=== PATIENT | female | born 1955 | race Caucasian/White ===

== ENCOUNTER 2022-02-17 13:00 | Outpatient (CLI) | payer MEDICARE, SELFPAY ==
--- NOTE | 2022-02-17 13:00 | CRLHL7_ITS ---
For Patients: As a result of the Century Cures Act, medical imaging exams and procedure reports are released immediately into your electronic medical record. You may view this report before your referring provider. If you have questions, please contact your health care provider. BILATERAL SCREENING MAMMOGRAM WITH COMPUTER-AIDED DETECTION AND TOMOSYNTHESIS, 02/17/2022 TECHNIQUE: CC and MLO views were obtained. These mammographic images have been obtained using full-field digital technique. These mammographic images were interpreted with the benefit of computer-aided detection. Breast tomosynthesis was used in this interpretation. COMPARISON FILM: 01/13/2021, 06/09/2019, 01/28/2018. FINDINGS: There are scattered areas of fibroglandular density. IMPRESSION: There is no radiographic evidence for malignancy. ASSESSMENT: BI-RADS Category 2: Benign RECOMMENDATION: Routine screening mammogram in 1 year. A lay language report of this examination will be provided to the patient. DILSHAD MARCIAL M.D. Diagnostic Radiologist [email or web address] Transcribed: 2:[address]/Dictated by: Dilshad Marcial MD @ 02/18/2022 9:13:00 AM (Electronically Signed)
== END 2022-02-17 13:01 | disposition home or self-care (01) ==
LOC: MAMMO 13:03
PROVIDERS: PCP Internal Medicine; Visit Provider Internal Medicine
DX: Z12.31 Encounter for screening mammogram for malignant neoplasm of breast (principal)
CPT/HCPCS: 77063; 77067

== ENCOUNTER 2023-02-23 13:57 | Outpatient (CLI) | payer MEDICARE, BC, SELFPAY ==
--- NOTE | 2023-02-23 14:00 | CRLHL7_ITS ---
For Patients: As a result of the Century Cures Act, medical imaging exams and procedure reports are released immediately into your electronic medical record. You may view this report before your referring provider. If you have questions, please contact your health care provider. BILATERAL SCREENING MAMMOGRAM WITH COMPUTER-AIDED DETECTION AND TOMOSYNTHESIS TECHNIQUE: CC and MLO views were obtained. These mammographic images have been obtained using full-field digital technique. These mammographic images were interpreted with the benefit of computer-aided detection. Breast Tomosynthesis was used in this interpretation. COMPARISON FILM: 02/17/22, 01/13/21, 06/09/19. FINDINGS: The breasts are heterogeneously dense, which may obscure small masses IMPRESSION: There is no radiographic evidence for malignancy. ASSESSMENT: BI-RADS Category 1: Negative RECOMMENDATION: Routine screening mammogram in 1 year. A lay language report of this examination will be provided to the patient. Dilshad Parker M.D. Diagnostic Radiologist [email or web address] SUZI/Dictated by: Dilshad Parker MD @ 02/24/2023 12:21:00 PM (Electronically Signed)
== END 2023-02-23 13:58 | disposition home or self-care (01) ==
LOC: MAMMO 13:58
PROVIDERS: PCP Internal Medicine; Visit Provider Internal Medicine
DX: Z12.31 Encounter for screening mammogram for malignant neoplasm of breast (principal); R92.2 Inconclusive mammogram
CPT/HCPCS: 77063; 77067

== ENCOUNTER 2023-08-24 08:30 | Outpatient (CLI) | payer MEDICARE, BC, SELFPAY ==
--- OUTSIDE RECORDS SUMMARY | 2023-08-25 07:18 | XMS_ITS | Encounter Summary ---
Author Name Unknown Organization [facility] Address [address] [place] [address] Care Team Providers Care Steel Rigger Name Role Phone Elizabeth Romeo MD Primary Care Provider Kyle Garza MD Unavailable Elizabeth Romeo MD Unavailable Janelle Dewitt MD Primary Care Provider [phone] Phuong Baugh MD Unavailable [phone] Chanelle Segura MD Unavailable [phone] Marisol Fernandez PA-C Unavailable [phone] Phuong Baugh MD Unavailable [phone] Encounter Details Date Type Department Care Team (Late st Contact Info) Description 12[place]06/2020 [facility] [place] [facility] [place] [facility] [address] [place] [address] Leslie Atkinson ATC Social History Tobacco Use Types Packs/Day Years Used Date Smoking Tobacco: Never Smokeless Tobacco: Never Alcohol Use Standard Drinks/Week Comments Yes 0 (1 standard drink = 0.6 oz pure alcohol) occas., 2 per month, before dinner PHQ-2 Answer Date Recorded PHQ-2 Score 0 07/18/2018 Sex and Gender Information Value Date Recorded Sex Assigned at Female 01/09/2021 11:55 AM CDT Gender Identity Female 01/09/2021 11:55 AM CDT Sexual Orientation Not on file documented as of this encounter Plan of Treatment Not on file documented as of this encounter Visit Diagnoses Not on filedocumented in this encounter Care Teams Steel Rigger Relationship Specialty Start Date End Date Elizabeth Romeo MD [address] [address] PCP - General 08/10/02 01/13/21 Janelle Dewitt MD [address] [phone] PCP - General Internal Medicine 01/14/21 Kyle Garza MD [address] [phone] Family Medicine - Sports Medicine 12/24/14 Elizabeth Romeo MD [address] [address] Assigned PCP 07/23/19 04/12/21 Phuong Baugh MD [address] [place] [address] [id number] Assigned Musculoskeletal Provider 01/19/21 11/21/21 Chanelle Segura MD [address] [place], [place] [phone] Assigned PCP 04/13/21 07/19/21 Marisol Fernandez PA-C [address] [place] [address] [phone] Assigned Musculoskeletal Provider 11/22/21 12/12/21 Phuong Baugh MD [address] [place] [address] Assigned Musculoskeletal Provider 12/13/21 documented as of this encounter
--- OUTSIDE RECORDS SUMMARY | 2023-08-25 07:18 | XMS_ITS | Encounter Summary ---
Author Name Unknown Organization [facility] Address [address] [place] [address] Care Team Providers Care Solvent Plant Treater Name Role Phone Kyle Garza MD Unavailable [phone] Elizabeth Romeo MD Unavailable Janelle Dewitt MD Primary Care Provider Phuong Baugh MD Unavailable Chanelle Segura MD Unavailable [phone] Marisol Fernandez PA-C Unavailable [phone] Phuong Baugh MD Unavailable Encounter Details Date Type Department Care Team (Late st Contact Info) Description 02/05/2021 [facility] [place] [facility] [address] [place] [address] Phuong Baugh MD [address] [place] [address] Social History Tobacco Use Types Packs/Day Years Used Date Smoking Tobacco: Never Smokeless Tobacco: Never Alcohol Use Standard Drinks/Week Comments Yes 0 (1 standard drink = 0.6 oz pure alcohol) occas., 2 per month, before dinner PHQ-2 Answer Date Recorded PHQ-2 Score 0 01/14/2021 Sex and Gender Information Value Date Recorded Sex Assigned at Female 01/09/2021 11:55 AM CDT Gender Identity Female 01/09/2021 11:55 AM CDT Sexual Orientation Not on file COVID-19 Exposure Response Date Recorded In the last month, have you been in contact with someone who was confirmed or suspected to have Coronavirus / COVID-19? No / Unsure 02/05/2021 10:49 AM CDT documented as of this encounter Plan of Treatment Not on file documented as of this encounter Visit Diagnoses Not on filedocumented in this encounter Care Teams Solvent Plant Treater Relationship Specialty Start Date End Date Janelle Dewitt MD [address] [address] PCP - General Internal Medicine 01/14/21 Kyle Garza MD Family Medicine - Sports Medicine 12/24/14 Elizabeth Romeo MD [address] [phone] Assigned PCP 07/23/19 04/12/21 Phuong Baugh MD [address] [place] [address] [id number] Assigned Musculoskeletal Provider 01/19/21 11/21/21 Chanelle Segura MD [address] [place] [address] Assigned PCP 04/13/21 07/19/21 Marisol Fernandez PA-C [address] [place] [address] [phone] Assigned Musculoskeletal Provider 11/22/21 12/12/21 Phuong Baugh MD [address] [place] [address] Assigned Musculoskeletal Provider 12/13/21 documented as of this encounter
--- OUTSIDE RECORDS SUMMARY | 2023-08-25 07:18 | XMS_ITS | Encounter Summary ---
Author Name Unknown Organization [facility] Address [address] [place] [address] Care Team Providers Care Fibre Optics Jointer Name Role Phone Kyle Garza MD Unavailable [phone] Jaenlle Dewitt MD Primary Care Provider Phuong Baugh MD Unavailable Marisol Fernandez PA-C Unavailable Phuong Baugh MD Unavailable Encounter Details Date Type Department Care Team (Late st Contact Info) Description 07/30/2021 [facility] [place] [facility] [address] [address] Phuong Baugh MD [address] [place] [address] Social History Tobacco Use Types Packs/Day [...] on filedocumented in this encounter Care Teams Fibre Optics Jointer Relationship Specialty Start Date End Date Janelle Dewitt MD [address] [address] PCP - General Internal Medicine 01/14/21 Kyle Garza MD Family Medicine - Sports Medicine 12/24/14 Phuong Baugh MD [address] [place] [address] Assigned Musculoskeletal Provider 01/19/21 11/21/21 Marisol Fernandez PA-C [address] [place] [address] Assigned Musculoskeletal Provider 11/22/21 12/12/21 Phuong Baugh MD [address] [place] [address] Assigned Musculoskeletal Provider 12/13/21 documented as of this encounter
--- OUTSIDE RECORDS SUMMARY | 2023-08-25 07:18 | XMS_ITS | Encounter Summary ---
Author Name Unknown Organization [facility] Address [address] [place] [address] Care Team Providers Care Fiscal Technician Name Role Phone Kyle Garza MD Unavailable [phone] Janelle Dewitt MD Primary Care Provider Phuong Baugh MD Unavailable [phone] Chanelle Segura MD Unavailable [phone] Marisol Fernandez PA-C Unavailable Phuong Baugh MD Unavailable Encounter Details Date Type Department Care Team (Late st Contact Info) Description 06/18/2021 [facility] [place] Medical Advice [facility] [address] [address] Phuong Baugh MD [address] [place] [address] Social History Tobacco Use Types Packs/Day [...] on filedocumented in this encounter Care Teams Fiscal Technician Relationship Specialty Start Date End Date Janelle Dewitt MD [address] [address] PCP - General Internal Medicine 01/14/21 Kyle Garza MD Family Medicine - Sports Medicine 12/24/14 Phuong Baugh MD [address] [place] [address] Assigned Musculoskeletal Provider 01/19/21 11/21/21 Chanelle Segura MD [address] [place], [place] 019327 Assigned PCP 04/13/21 07/19/21 Marisol Fernandez PA-C [address] [place] [address] [phone] Assigned Musculoskeletal Provider 11/22/21 12/12/21 Phuong Baugh MD [address] [place] [address] [phone] Assigned Musculoskeletal Provider 12/13/21 documented as of this encounter
--- OUTSIDE RECORDS SUMMARY | 2023-08-25 07:18 | XMS_ITS | Encounter Summary ---
Author Name Unknown Organization [facility] Address [address] [place] [address] Care Team Providers Care Rand Cementer Name Role Phone Kyle Garza MD Unavailable [phone] Janelle Dewitt MD Primary Care Provider Phuong Baugh MD Unavailable [phone] Marisol Fernandez PA-C Unavailable [phone] Phuong Baugh MD Unavailable Encounter Details Date Type Department Care Team (Late st Contact Info) Description [place]/20[place] [facility] [place] [facility] [address] [address] Marisol Fernandez PA-C [address] [place] [address] Social History Tobacco Use Types Packs/Day Years Used Date Smoking Tobacco: Never Smokeless Tobacco: Never Alcohol Use Standard Drinks/Week Comments Yes 0 (1 standard drink = 0.6 oz pure alcohol) occas., 2 per month, before dinner PHQ-2 Answer Date Recorded PHQ-2 Score 0 10/07/2021 Sex and Gender Information Value Date Recorded Sex Assigned at Female 01/09/2021 11:55 AM CDT Gender Identity Female 01/09/2021 11:55 AM CDT Sexual Orientation Not on file COVID-19 Exposure Response Date Recorded In the last 10 days, have yo u been in contact with someone who was confirmed or suspected to have Coronavirus/COVID-19? No / Unsure 11/07/2021 2:31 PM CDT documented as of this encounter Plan of Treatment Not on file documented as of this encounter Visit Diagnoses Not on filedocumented in this encounter Care Teams Rand Cementer Relationship Specialty Start Date End Date Janelle Dewitt MD [address] [address] PCP - General Internal Medicine 01/14/21 Kyle Garza MD Family Medicine - Sports Medicine 12/24/14 Phuong Baugh MD [address] [place] [address] Assigned Musculoskeletal Provider 01/19/21 11/21/21 Marisol Fernandez PA-C [address] [place] [address] Assigned Musculoskeletal Provider 11/22/21 12/12/21 Phuong Baugh MD [address] [place] [address] Assigned Musculoskeletal Provider 12/13/21 documented as of this encounter
--- OUTSIDE RECORDS SUMMARY | 2023-08-25 07:18 | XMS_ITS | Encounter Summary ---
Author Name Unknown Organization [facility] Address [address] [place] [address] Care Team Providers Care Coconut Cooker Name Role Phone Kyle Garza MD Unavailable Janelle Dewitt MD Primary Care Provider Phuong Baugh MD Unavailable [phone] Chanelle Segura MD Unavailable [phone] Marisol Fernandez PA-C Unavailable Phuong Baugh MD Unavailable [phone] Encounter Details Date Type Department Care Team (Late st Contact Info) Description 05/16/2021 [facility] [place] [facility] [address] [address] Phuong Baugh MD [address] [place] [address] Social History Tobacco Use Types Packs/Day [...] on filedocumented in this encounter Care Teams Coconut Cooker Relationship Specialty Start Date End Date Janelle Dewitt MD [address] [address] PCP - General Internal Medicine 01/14/21 Kyle Garza MD Family Medicine - Sports Medicine 12/24/14 Phuong Baugh MD [address] [place] [address] Assigned Musculoskeletal Provider 01/19/21 11/21/21 Chanelle Segura MD [address] [place], [place] [phone] Assigned PCP 04/13/21 07/19/21 Marisol Fernandez PA-C [address] [place] [address] [phone] Assigned Musculoskeletal Provider 11/22/21 12/12/21 Phuong Baugh MD [address] [place] [address] [phone] Assigned Musculoskeletal Provider 12/13/21 documented as of this encounter
--- OUTSIDE RECORDS SUMMARY | 2023-08-25 07:18 | XMS_ITS | Clinical Summary ---
Author Name Unknown Organization [facility] Address [place], [place] [address] Care Team Providers Care Worm Farmer Name Role Phone Janelle Dewitt MD Primary Care Provider [phone] Allergies Active Allergy Reactions Criticality Noted Date Comments Minocycline Hives 11/08/2001 Tetracycline Hives 11/08/2001 Medications No known medications Active Problems Problem Noted Date Diagnosed Date Family history of colonic polyps 09/15/2022 Overview: Colonoscopy 08/2022 hyperplastic polyps, repeat in 5 years Social History Tobacco Use Types Packs/Day Years Used Date Smoking Tobacco: Never Smokeless Tobacco: Never Tobacco Cessation:Counseling Given: Yes Sex and Gender Information Value Date Recorded Sex Assigned at Not on file Gender Identity Not on file Sexual Orientation Not on file Obstetrics History Last Filed Vital Signs Vital Sign Reading Time Taken Comments Blood Pressure 127/63 09/09/2022 11:46 AM CDT Pulse 67 09/09/2022 11:46 AM CDT Temperature - - Respiratory Rate 16 09/09/2022 11:46 AM CDT Oxygen Saturation 94% 09/09/2022 11:46 AM CDT Inhaled Oxygen Concentration - - Weight 69.9 kg (154 lb) 05/19/2022 1:17 PM PHYSICIAN OFFICE ASSISTANT Height - - Body Mass Index - - Plan of Treatment Health Maintenance Due Date Last Done Comments Tdap 10/05/1966 Depression screening for age 12+ 1967 BMI (ht and wt on same day) for age 18+ 10/05/1973 Hepatitis C screening for age 18-79 10/05/1973 Tetanus booster 1975 Lipids for age 45-75 10/05/2000 Mammogram for age 45-75 10/05/2000 Zoster (shingles) series for age 50+ (1 of 2) 10/05/2005 DEXA/DXA scan for age 65+ 10/05/2020 Medicare Wellness for age 65+ 10/05/2020 Pneumococcal series for age 65+ (1 of 1 - PCV) 10/05/2020 COVID-19 vaccine series (2 - 2022- season) 2023 01/07/2022 Influenza for age 65+ 01/02/2024 Colonoscopy through age 75 09/10/2027 09/09/2022, Procedures Procedure Name Priority Date/Time Associated Diagnosis Comments COLONOSCOPY 09/09/2022 10:19 AM CDT from Last 3 Months or Most Recently Relevant to Health Maintenance Results * COLONOSCOPY (09/09/2022 10:19 AM CDT) 09/09/2022 10:1 9 AM CDT Narrative Transcriptions Orlando Gates MD - 09/09/2022 1:53 PM CDT Patient Name: Ángela Palma Procedure Date: 09/09/2022 Gender: Female Date of : 1955 Admit Type: Outpatient Procedure: Colonoscopy Proceduralist: Orlando Gates MD , Valerie Lopez RN(Nurse), Sanna Soliz (Nurse) Indications/Pre-Op Diagnosis: Colon cancer screening in patient withmultiple 1st-degree relatives having advancedadenomas of the colon, Last colonoscopy: date unknown (unable to locate last colonoscopy report) Medications: Fentanyl 100 micrograms IV, Midazolam 3 mgIV Procedure Description: The patient had risks, benefits and alternatives explained to andgave informed consent. The patient had a stable cardiopulmonary status and judged an adequate candidate for conscious sedation. The endoscope [id number]-[id number] [id number] was passed through the anus andadvanced to the cecum, identified by appendiceal orifice and ileocecal valve.The colonoscopy was performed without difficulty. The patient toleratedthe procedure well. The quality of the bowel preparation was good. The ileocecal valve, appendiceal orifice, and rectum were photographed. Complications: No immediate complications. Estimated Blood Loss & Specimen: Estimated blood loss: none. Specimen collected - Yes and sent to Laboratory Findings: The perianal and digital rectal examinations were normal. Two sessile polyps were found in the rectum. The polyps were 2 mm in size. These polyps were removed with a cold biopsy forceps. Resection and retrieval were complete. The exam was otherwise without abnormality. Impressions/Post-Op Diagnosis: - Two 2 mm polyps in the rectum, removed with a cold biopsy forceps. Resected and retrieved. - The examination was otherwise normal. Recommendation: - Patient has a contact number available for emergencies. The signsand symptoms of potential delayed complications were discussed with the patient. Return to normal activities tomorrow. Written discharge instructions were provided to the patient. - Resume previous diet. - Continue present medications. - Await pathology results. - Repeat colonoscopy in 5 years. Moderate Sedation: Moderate (conscious) sedation was administered by the nurse and supervised by the endoscopist. The patient's oxygen saturation, heart rate, blood pressure and response to care were monitored. Total physician intraservice time was 16 minutes. Orlando Gates MD 09/09/2022 11:32:18 AM This report has been signed electronically. Note Initiated On: 09/09/2022 10:19 AM Procedure Code(s): --- Professional --- 58087, Colonoscopy, flexible; with biopsy, single or multiple G0500, Moderate sedation services providedby the same physician or other qualified health progressive care nurse performing agastrointestinal endoscopic service that sedation supports, requiring the presence of an independent trained observer to assist in the monitoringof the patient's level of consciousness and physiological status; initial 15 minutes of intra-service time; patient age 5 years or older (additional time may be reported with 43780, as appropriate) Diagnosis Code(s): --- Professional --- Z83.71, Family history of colonic polyps D12.8, Benign neoplasm of rectum CPT copyright 2021 [employer]. All rights reserved. The codes documented in this report are preliminary and upon home paraprofessional reviewmay be revised to meet current compliance requirements. Scope In: 11:05:48 AM Scope Withdrawal Time 0 hours 8 minutes 11 seconds Scope Out: 11:19:38 AM Orlando Gates MD PROCEDURE ORD from Last 3 Months or Most Recently Relevant to Health Maintenance Care Teams Worm Farmer Relationship Specialty Start Date End Date Janelle Dewitt MD [address] [place] [address] PCP - General Internal Medicine 06/09/22
--- OUTSIDE RECORDS SUMMARY | 2023-08-25 07:18 | XMS_ITS | Referral Summary ---
Author Name Unknown Organization [facility] Address [address] [place] [address] Care Team Providers Care Tube Bending Machine Operator Name Role Phone Kyle Garza MD Unavailable [phone] Janelle Dewitt MD Primary Care Provider Phuong Baugh MD Unavailable Allergies Active Allergy Reactions Criticality Noted Date Comments Cats Difficulty breathing 11/08/2001 Dust Mite Extract 01/14/2021 Minocycline Hives 11/08/2001 Tetracycline Hives 11/08/2001 Medications Medication Sig Dispensed Refills Start Date End Date Status calcium carbonate (OS-CASPER 500 MG [place]. CA) 500 MG tablet Take 500 mg by mouth 2 times daily Active MAGNESIUM OXIDE PO Take 250 mg by mouth daily Active Multiple Vitamins-Minerals (VITAMINS & MINERALS CAPS OR) Take 1 capsule by mouth daily Active glucosamine-chondro itin 500-400 MG CAPS per capsule Take 1 capsule by mouth daily Active psyllium 400 MG capsule Take 1 capsule by mouth 2 times daily Active acetaminophen (TYLENOL) 325 MG tabletIndications:S tatus post total right knee replacement Take 2 tablets (650 mg) by mouth every 4 hours as needed for other 60 tablet 10/12/2021 Active aspirin (ASA) 81 MG EC tabletIndications:V TE Prophylaxis Take 2 tablets (162 mg) by mouth daily 60 tablet 10/10/2021 Active melatonin 5 MG tablet Take 5 mg by mouth At Bedtime Active amoxicillin (AMOXIL) 500 MG capsuleIndications: S/P knee surgery Take 4 tablets (2,000mg) one hour before dental appointment or non-sterile procedures 4 capsule 02/16/2023 Active Active Problems Problem Noted Date Diagnosed Date Status post total right knee replacement 022 Advanced directives, counseling/discussion 01/09 Overview: Advance Care Planning: Receipt of ACP document: Received: Health Care Directive which was witnessed or notarized on 07-26-2013. Document not previously scanned. Validation form completed and sent with document to be scanned. Code Status reflects choices in most recent ACP document. Confirmed/documented designated decision maker(s). See permanent comments section of demographics in clinical tab. View document(s) and details by clicking on code status. Added by Ryann Souza on 01/09/2014. Primary localized osteoarthrosis, lower leg 04/02 CARDIOVASCULAR SCREENING; LDL GOAL LESS THAN 130 03/02/2010 Chronic rhinitis 01/21/2007 Resolved Problems Problem Noted Date Diagnosed Date Resolved Date Right knee pain 02/05/2021 04/10/2021 Tear meniscus knee 07/11/2013 6 Esophageal reflux 01/22/2006 10/30/2011 Depressive disorder, not elsewhere classified 05/28/19 04 02/24/2008 Displacement of intervertebr al disc, site unspecified, without myelopathy 08/10/2002 02/24/20 08 Immunizations Name Administration Dates Next Due Influenza (IIV3) PF 02/07/2018, 3,01/28/2010,2008,02/24/2008 TD,PF 7+ (Tenivac) 01/22/2006 TDAP Vaccine (Adacel) 01/09/2013 Zoster recombinant adjuvante d (SHINGRIX) 04/07/2018 Zoster vaccine, live 01/30/2016 Social History Tobacco Use Types Packs/Day Years Used Date Smoking Tobacco: Never Smokeless Tobacco: Never Tobacco Cessation:Counseling Given: No Alcohol Use Standard Drinks/Week Comments Yes 0 (1 standard drink = 0.6 oz pure alcohol) occas., 2 per month, before dinner PHQ-2 Answer Date Recorded PHQ-2 Score 0 10/07/2021 Adolescent Education Answer Date Record ed Getting School Help Needed Not on file 02/02 Sex and Gender Information Value Date Recorded Sex Assigned at Female 01/09/2021 11:55 AM CDT Gender Identity Female 01/09/2021 11:55 AM CDT Sexual Orientation Not on file Last Filed Vital Signs Vital Sign Reading Time Taken Comments Blood Pressure 124/67 10/10/2021 12:12 AM CDT Pulse 78 10/10/2021 12:12 AM CDT Temperature 35.9 ??C (96.6 ??F) 10/10/2021 12:12 AM C DT Respiratory Rate 16 10/10/2021 12:12 AM CDT Oxygen Saturation 98% 10/10/2021 12:12 AM CDT Inhaled Oxygen Concentration - - Weight 68.5 kg (151 lb) 04/07/2022 12:32 PM DEMAND PLANNING ANALYST Height 165.1 cm (5' 5) 04/07/2022 12:32 PM DEMAND PLANNING ANALYST Body Mass Index 25.13 04/07/2022 12:32 PM DEMAND PLANNING ANALYST Plan of Treatment Not on file Medical Devices Implanted Type Area Chip Drier Device Identifier Shelf Expiration Date Model / Serial / Lot Bone Cement Simplex W/Tobramycin 6197-9-001 - [id number] Implanted:Qty: 1 on 10/09/2021 by Phuong Baugh MD at [facility] Cement, Bone Right: Knee [employer] 01/30/2023 6197-9-00 1 / / [id number] Imp Insert Baseplate Tibial Howm Tri 3 5521-B-300 - [id number] Implanted:Qty: 1 on 10/09/2021 by Phuong Baugh MD at [facility] Total Joint Component /Insert Right: Knee [employer] [id number] 04/03/2026 5521-B-30 0 / / [id number] Imp Comp Fem Strk Triathln Cr Rt 2 5510-F- - [id number] Implanted:Qty: 1 on 10/09/2021 by Phuong Baugh MD at [facility] Total Joint Component /Insert Right: Knee [employer] [id number] 03/27/2026 5510-F-20 2 / / PCC2B Imp Comp Patella Strk Tri Sym X3 29x8mm 5550-G-298 - [id number] Implanted:Qty: 1 on 10/09/2021 by Phuong Baugh MD at [facility] Total Joint Component /Insert Right: Knee [employer] [id number] 02/06/2023 5550-G-29 8 / / JMNT Triathlon Tibial Bearing Insert-Cs Implanted:Qty: 1 on 10/09/2021 by Phuong Baugh MD at [facility] Right: Knee [employer] [id number] 03/24/2025 5531-G-31 0-E / / [id number] Explanted Type Area Chip Drier Device Identifier Shelf Expiration Date Model / Serial / Lot Uni Knee Components Explanted Explanted:Qty: 3 on 10/09/2021 by Phuong Baugh MD at [facility] Right: Knee Procedures Procedure Name Priority Date/Time Associated Diagnosis Comments GLUCOSE Routine 10/10/2021 6:47 AM CDT LIPID REFLEX TO DIRECT LDL PANEL Routine 04/12/2018 9:50 AM DEMAND PLANNING ANALYST CARDIOVASCULAR SCREENING; LDL GOAL LESS THAN 130 MA SCREENING BILATERAL W/ SAAD Routine 01/28/2018 1:46 PM CDT Encounter for screening mammogram for high-risk patient COLONOSCOPY - HIM SCAN 03/05/2017 12:00 AM CDT DX BONE DENSITY Routine 04/06/2016 2:23 PM DEMAND PLANNING ANALYST Encounter for routine adult health examination without abnormal findings HEPATITIS C SCREEN REFLEX TO HCV RNA QUANT AND GENOTYPE Routine 03/09/2016 10:01 AM DEMAND PLANNING ANALYST Encounter for routine adult health examination without abnormal findings PAP IMAGED THIN LAYER SCREEN Routine 01/30/2016 12:00 AM CDT Encounter for routine adult health examination without abnormal findings from Last 3 Months or Most Recently Relevant to Health Maintenance Results * (ABNORMAL) Glucose (10/10/2021 6:47 AM CDT) Glucose 109(H) 70 - 99 mg/dL 10/10/2021 7:46 AM CDT UR LABORATORY Patient Fasting > 8hrs? Yes 10/10/2021 7:46 AM CDT UR LABORATORY Blood STRUCTURE OF RIGHT UPPER LIMB / Unknown Venipuncture / Unknown 10/10/2021 6:47 AM CDT 10/10/2021 7:22 AM CDT Phuong Baugh MD LAB - BLOOD ORDERA BLES UR LABORATORY [facility] [address] [facility] [place] [address], [facility] [phone] * (ABNORMAL) Lipid panel reflex to direct LDL Fasting (04/12/2018 9:50 AM DEMAND PLANNING ANALYST) Cholesterol 207(H) <200 mg/dL 04/13/2018 11:36 AM [facility] Comment:Desirable: <200 mg/d l Triglycerides 133 <150 mg/dL 04/13/2018 11:36 AM [facility] Comment:Fasting specimen HDL Cholesterol 47(L) >49 mg/dL 8 11:36 AM [facility] LDL Cholesterol Calculated 133(H) <100 mg/dL 04/13/2018 11:36 AM [facility] Comment: Above desirable: ??100-129 mg/dl Borderline High: ??130-159 mg/dL High: ? 160-189 mg/dL Very high: ? >189 mg/dl Non HDL Cholesterol 160(H) <130 mg/dL 04/13/2018 11:36 AM [facility] Comment: Above Desirable: ??130-159 mg/dl Borderline high: ??160-189 mg/dl High: ? 190-219 mg/dl Very high: ? >219 mg/dl Blood specimen (specimen) 04/12/2018 9:50 AM DEMAND PLANNING ANALYST 04/12/2018 9:55 AM DEMAND PLANNING ANALYST Elizabeth Romeo MD LAB - BLOOD ORDERABL ES [facility] [address] [place] [address] * MA Screen Bilateral w/Saad (01/28/2018 1:46 PM CDT) Anatomical Region Laterality Modality Breast Bilateral Mammography Impressions 01/28/2018 2:31 PM CDT IMPRESSION: BI-RADS CATEGORY: 1 - ??Negative RECOMMENDED FOLLOW-UP: Annual Mammography. Exam results letter mailed to patient. FEI CHOWDHURY MD Narrative 01/28/2018 2:31 PM CDT SCREENING MAMMOGRAM, BILATERAL, DIGITAL w/CAD AND TOMOSYNTHESIS - 01/28/2018 1:46 PM BREAST SYMPTOMS: No current breast complaints. COMPARISON: ??12/31/2016, 02/06/2014. BREAST DENSITY: Scattered fibroglandular densities. COMMENTS: No findings of suspicion for malignancy. Procedure Note Fei Chowdhury MD - 01/28/2018 SCREENING MAMMOGRAM, BILATERAL, DIGITAL w/CAD AND TOMOSYNTHESIS - 01/28/2018 1:46 PM BREAST SYMPTOMS: No current breast complaints. COMPARISON: 12/31/2016, 02/06/2014. BREAST DENSITY: Scattered fibroglandular densities. COMMENTS: No findings of suspicion for malignancy. IMPRESSION: BI-RADS CATEGORY: 1 - Negative RECOMMENDED FOLLOW-UP: Annual Mammography. Exam results letter mailed to patient. FEI CHOWDHURY MD Elizabeth Romeo MD IMG MAMMOGRAPHY ORDE RABLES * COLONOSCOPY - HIM SCAN (03/05/2017 12:00 AM CDT) 03/05/2017 Provider Outside PROCEDURES * DX Hip/Pelvis/Spine (04/06/2016 2:23 PM DEMAND PLANNING ANALYST) Anatomical Region Laterality Modality Dexa Computed Radiogr aphy Narrative 04/10/2016 8:13 AM DEMAND PLANNING ANALYST BONE DENSITOMETRY [address] [address] 04/06/2016 PATIENT: Arsenio Palma CHART: [id number] ?? :?? 1955 AGE:?? 60 year old SEX:?? female REFERRING PROVIDER:??Elizabeth Romeo MD PROCEDURE:?? Bone density scanning was performed using DXA technology of the lumbar spine and hip.?? Scanning was performed on a Need scanner.?? Reporting is completed in the form of a T-score.?? The T-score represents the standard deviation from peak bone mass based on a young healthy adult. REFERENCE T-SCORES: ? Normal? -1.0 and greater? Osteopenia? Between -1.0 and -2.5? Osteoporosis? -2.5 and less? RISK FACTORS:?? Post-menopausal, Parent history of osteoporosis, follow up osteopenia CURRENT TREATMENT:?? Calcium with Vitamin D FINDINGS: ? Lumbar Spine (L1-L4)? T-score:?? -0.9, degenerative changes presnet ? Left Femoral Neck ? T-score:?? -2.0 ? Right Femoral Neck ? T-score:?? -1.5 ? Lumbar (L1-L4) BMD: 1.081?Previous: 1.098? Total Hip Mean BMD: 0.937?Previous: 0.953 Comparison is made to other DXAs performed on the same Need?? machine on 02/18/07 and 12/21/11. IMPRESSION Osteopenia., Degenerative changes of the lumbar spine which may falsely elevate results. There has been no significant change in bone density of the lumbar spine compared to 2011. There has been significant decrease compared to 2006. There has been no significant change in bone density of the hip(s) compared to 2011. There has been significant decrease compared to 2006. Recommendations include ensuring adequate Calcium and Vitamin D. The current NOF Guidelines recommend treatment for patients with prior hip or vertebral fracture, T-score -2.5 or below, or 10 year risk of any major osteoporotic fracture >20% or 10 year risk of hip fracture >3%, as calculated using the FRAX calculator (www.shef.ac.uk/FRAX or you can google FRAX). ?? This patient's risks based on available information, with the use of FRAX, are 9.6 % for major osteoporotic fracture and 1.2 % for hip fracture. Based on these guidelines, treatment (in addition to calcium and vitamin D) is not recommended for this patient, after ruling out other causes of osteoporosis. This is meant as an aid to clinical decision making; one must still use clinical judgement. Follow up can be considered in 5 years. Elizabeth Romeo M.D. Electronically signed Elizabeth Romeo MD IMG DEXA ORDERABLES * Hepatitis C Screen Reflex to HCV RNA Quant and Genotype (03/09/2016 10:01 AM DEMAND PLANNING ANALYST) Hepatitis C Antibody Nonreactive Assay performance characteristics have not been established for newborns, infants, and children NR [facility] Blood specimen (specimen) 03/09/2016 10:01 AM DEMAND PLANNING ANALYST 03/09/2016 10:06 AM DEMAND PLANNING ANALYST Elizabeth Romeo MD LAB - BLOOD ORDERABL ES [facility] [address] * Pap imaged thin layer screen with HPV - recommended age 30 - 65 years (select HPV order below) (01/30/2016 12:00 AM CDT) PAP KATINA Allen Report Patient Name: ARSENIO PALMA MR#: [id number] Specimen #: [id number] Collected: 01/30/2016 Received: 01/31/2016 Reported: 02/03/2016 12:11 Ordering Phy(s): ELIZABETH ROMEO SPECIMEN/STAIN PROCESS: Pap imaged thin layer prep screening (Surepath, FocalPoint with guided screening) ? Pap-Cyto x 1, HPV ordered x 1 SOURCE: Cervical, endocervical Pap imaged thin layer prep screening (Surepath, FocalPoint with guided screening) SPECIMEN ADEQUACY: Satisfactory for evaluation. -Transformation zone component absent. CYTOLOGIC INTERPRETATION: Negative for Intraepithelial Lesion or Malignancy Electronically signed out by: MINA Pena (ASCP) Processed and screened at [facility] CLINICAL HISTORY: LMP: 11/10/05 Previous normal pap Date of Last Pap: 01/09/13, Papanicolaou Test Limitations: ??Cervical cytology is a screening test with limited sensitivity; regular screening is critical for cancer prevention; Pap tests are primarily effective for the diagnosis/preventi on of squamous cell carcinoma, not adenocarcinomas or other cancers. TESTING LAB LOCATION: [address] ??[address] COLLECTION SITE: Client: ??[facility] Location: [place] (R) COPATH Cytologic material (specimen) 01/30/2016 01/31/2016 10:20 AM CDT Elizabeth Romeo MD LAB - OPTIME CLINICA L SPECIMEN COPATH from Last 3 Months or Most Recently Relevant to Health Maintenance Advance Directives For more information, please contact: [phone] Documents on File Type Date Recorded Patient Olericulture Professor Expl anation Advance Directives and Living Will 08/03/2013 10:15 AM Health Care Directiv e 07/26/13 * Full Code (Latest Code Status on File) Date Activated Date Inactivated Comments 10/09/2021 5:31 PM 10/10/2021 4:26 PM All basic and advanced life-sustaining interventions are performed as appropriate Question Answer Comments Code status determined by: Unable to det ermine; FULL CODE until documents or legal decision maker available Healthcare Agents on File Name Relationship Healthcare Agent Relationship Communication Thierno Brock Significant other Health Care Agent Rom Najeraelsen Friend First Alternate Health Care Agent Care Teams Tube Bending Machine Operator Relationship Specialty Start Date End Date Janelle Dewitt MD [facility] [address] [place] [address] PCP - General Internal Medicine 01/14/21 Kyle Garza MD Family Medicine - Sports Medicine 12/24/14 Phuong Baugh MD [address] [place] [address] [id number] Assigned Musculoskeletal Provider 12/13/21
--- OUTSIDE RECORDS SUMMARY | 2023-08-25 07:18 | XMS_ITS | Encounter Summary ---
Author Name Unknown Organization [facility] Address [address] [place] [address] Care Team Providers Care Superintendent Nonselling Name Role Phone Kyle Garza MD Unavailable Janelle Dewitt MD Primary Care Provider Phuong Baugh MD Unavailable Chanelle Segura MD Unavailable [phone] Marisol Fernandez PA-C Unavailable Phuong Baugh MD Unavailable [phone] Encounter Details Date Type Department Care Team (Late st Contact Info) Description 07/13/2021 [facility] Medical Advice [facility] [address] [address] Phuong Baugh MD [address] [place] [address] Social History Tobacco Use Types Packs/Day [...] on filedocumented in this encounter Care Teams Superintendent Nonselling Relationship Specialty Start Date End Date Janelle Dewitt MD [address] [address] PCP - General Internal Medicine 01/14/21 Kyle Garza MD Family Medicine - Sports Medicine 12/24/14 Phuong Baugh MD [address] [place] [address] Assigned Musculoskeletal Provider 01/19/21 11/21/21 Chanelle Segura MD [address] [place], [place] 388627 Assigned PCP 04/13/21 07/19/21 Marisol Fernandez PA-C [address] [place] [address] [phone] Assigned Musculoskeletal Provider 11/22/21 12/12/21 Phuong Baugh MD [address] [place] [address] [phone] Assigned Musculoskeletal Provider 12/13/21 documented as of this encounter
--- OUTSIDE RECORDS SUMMARY | 2023-08-25 07:18 | XMS_ITS | Encounter Summary ---
Author Name Unknown Organization [facility] Address [address] [place] [address] Care Team Providers Care Insulation Estimator Name Role Phone Kyle Garza MD Unavailable [phone] Janelle Dewitt MD Primary Care Provider [phone] Phuong Baugh MD Unavailable Marisol Fernandez PA-C Unavailable Phuong Baugh MD Unavailable Encounter Details Date Type Department Care Team (Late st Contact Info) Description 07/24/2021 [facility] [place] [facility] [address] [address] Phuong Baugh MD [address] [place] [address] Social History Tobacco Use Types Packs/Day [...] on filedocumented in this encounter Care Teams Insulation Estimator Relationship Specialty Start Date End Date Janelle Dewitt MD [address] [address] PCP - General Internal Medicine 01/14/21 Kyle Garza MD Family Medicine - Sports Medicine 12/24/14 Phuong Baugh MD [address] [place] [address] Assigned Musculoskeletal Provider 01/19/21 11/21/21 Marisol Fernandez PA-C [address] [place] [address] Assigned Musculoskeletal Provider 11/22/21 12/12/21 Phuong Baugh MD [address] [place] [address] Assigned Musculoskeletal Provider 12/13/21 documented as of this encounter
--- OUTSIDE RECORDS SUMMARY | 2023-08-25 07:18 | XMS_ITS | Encounter Summary ---
Author Name Unknown Organization [facility] Address [address] [place] [address] Care Team Providers Care Sexual Assault Nurse Name Role Phone Kyle Garza MD Unavailable Elizabeth Romeo MD Unavailable Janelle Dewitt MD Primary Care Provider [phone] Phuong Baugh MD Unavailable [phone] Chanelle Segura MD Unavailable Marisol Fernandez PA-C Unavailable [phone] Phuong Baugh MD Unavailable [phone] Encounter Details Date Type Department Care Team (Late st Contact Info) Description 02/12/2021 Documentation Only INTERFACED REPORT Unknown, Provider Social History Tobacco Use Types Packs/Day Years [...] have Coronavirus / COVID-19? No / Unsure 02/12/2021 10:58 AM CDT documented as of this encounter Plan of Treatment Not on file documented as of this encounter Visit Diagnoses Not on filedocumented in this encounter Care Teams Sexual Assault Nurse Relationship Specialty Start Date End Date Janelle Dewitt MD [address] [address] PCP - General Internal Medicine 01/14/21 Kyle Garza MD Family Medicine - Sports Medicine 12/24/14 Elizabeth Romeo MD [address] [phone] Assigned PCP 07/23/19 04/12/21 Phuong Baugh MD [address] [place] [address] [phone] Assigned Musculoskeletal Provider 01/19/21 11/21/21 Chanelle Segura MD [address] [place], [place] [phone] Assigned PCP 04/13/21 07/19/21 Marisol Fernandez PA-C [address] [place] [address] [phone] Assigned Musculoskeletal Provider 11/22/21 12/12/21 Phuong Baugh MD [address] [place] [address] [phone] Assigned Musculoskeletal Provider 12/13/21 documented as of this encounter
--- OUTSIDE RECORDS SUMMARY | 2023-08-25 07:18 | XMS_ITS | Clinical Summary ---
Author Name Unknown Organization [facility] Address [address] [place] [address] Care Team Providers Care Hcc Coders Name Role Phone Kyle Garza MD Unavailable [phone] Janelle Dewitt MD Primary Care Provider [phone] Phuong Baugh MD Unavailable Allergies Active Allergy Reactions Criticality Noted Date Comments Cats Difficulty breathing 11/08/2001 Dust Mite Extract 01/14/2021 Minocycline Hives 11/08/2001 Tetracycline Hives 11/08/2001 Medications Medication Sig Dispensed Refills Start Date End Date Status calcium carbonate (OS-CASPER 500 MG [place]. CA) 500 MG tablet Take 500 mg [...] d (SHINGRIX) 04/07/2018 Zoster vaccine, live 01/30/2016 Family History Medical History Relation Comments Hypertension Brother 3 C.A.D. Father 50's Blood Disease Mother Excessive bleedi ng in past Heart Disease Mother CHF, 86 yo Hypertension Mother Osteoporosis Mother vertebral fractu re Respiratory Mother Asthma Arthritis Sister 3 Blood Disease Sister 4 Type 1 [employer]'s Relation Status Comments Brother 1 Alive Brother 2 Alive Brother 3 Father (Age 79) Mother Sister 1 Alive Sister 2 Alive Sister 3 Sister 4 Social History Tobacco Use Types Packs/Day Years [...] 68.5 kg (151 lb) 04/07/2022 12:32 PM SHANK CEMENTER HAND Height 165.1 cm (5' 5) 04/07/2022 12:32 PM SHANK CEMENTER HAND Body Mass Index 25.13 04/07/2022 12:32 PM SHANK CEMENTER HAND Plan of Treatment Health Maintenance Due Date Last Done Comments ANNUAL REVIEW OF HM ORDERS 1955 CT COLONOGRAPHY 1955 FIT 1955 FLEX SIG 1955 sDNA (Cologuard) 1955 RSV VACCINE ( & 60+) (1 - 1-dose 60+ series) 2015 MAMMO SCREENING 01/28/2019 01/28/2018, 12/03, 03/29/2015, Additional history exists FALL RISK ASSESSMENT 10/05/2020 07/18/2018, 04/07/20 18 MEDICARE ANNUAL WELLNESS VISIT 10/05/2020 04/07/2018, 01/30/2016, 01/09/2013, Additional history exists Pneumococcal Vaccine: 65+ Years (2 of 2 - PPSV23 or PCV20) 01/20/2022 01/20/2021 COVID-19 Vaccine ( season) 2023 01/07/2022, 08/01/2021, 03/07/2021, Additional history exists INFLUENZA VACCINE (#1) 2023 , 02/01/2021, 01/31/2020, Additional history exists DTAP/TDAP/TD IMMUNIZATION (2 - Td or Tdap) 01/09/2023 01/09/2013, 01/22/2006 LIPID 04/12/2023 04/12/2018, 11/2015, 01/17/2013, Additional history exists PHQ-2 (once per calendar year) 2023 10/07/2021, 01/14/2021, 07/18/2018, Additional history exists GLUCOSE 10/10/2024 10/10/2021, 01/2022, 05/05/2021, Additional history exists ADVANCE CARE PLANNING 10/17/2026 10/17/2021 , 01/09/2014, 01/09/2014 COLONOSCOPY 03/05/2027 03/05/2017, 05/03, 03/22/2006 COLORECTAL CANCER SCREENING 03/05/2027 DEXA 04/06/2031 04/06/2016, 12/02, 02/18/2007 PAP Discontinued 01/30/2016, 01/2013, 01/09/2013, Additional history exists HEPATITIS C SCREENING Completed 03/09/2016 ZOSTER IMMUNIZATION Completed 09/08/2018, 04/07/2018, 01/30/2016 HPV IMMUNIZATION Aged Out No longer e ligible based on patient's age to complete this topic IPV IMMUNIZATION Aged Out No longer e ligible based on patient's age to complete this topic MENINGITIS IMMUNIZATION Aged Out No l onger eligible based on patient's age to complete this topic RSV MONOCLONAL ANTIBODY Aged Out No l onger eligible based on patient's age to complete this topic Medical Devices Implanted Type Area Rn Complex Care Device Identifier Shelf Expiration Date Model / Serial / Lot Bone Cement Simplex W/Tobramycin 6197-9-001 - [id number] Implanted:Qty: 1 on 10/09/2021 by Phuong Baugh MD at [facility] Cement, Bone Right: Knee [employer] 01/30/2023 6197-9-00 1 / / [id number] Imp Insert Baseplate Tibial Howm Tri 3 5521-B-300 - [id number] Implanted:Qty: 1 on 10/09/2021 by Phuong Baugh MD at [facility] Total Joint Component /Insert Right: Knee [employer] [id number] 04/03/2026 5521-B-30 0 / / [id number] Imp Comp Fem Strk Triathln Cr Rt 2 5510-F-202 - [id number] Implanted:Qty: 1 on 10/09/2021 by Phuong Baugh MD at [facility] Total Joint Component /Insert Right: Knee [employer] [id number] 03/27/2026 5510-F-20 2 / / [id number] Imp Comp Patella Strk Tri Sym X3 29x8mm 5550-G-298 - [id number] Implanted:Qty: 1 on 10/09/2021 by Phuong Baugh MD at [facility] Total Joint Component /Insert Right: Knee [employer] [id number] 02/06/2023 5550-G-29 8 / / [id number] Triathlon Tibial Bearing Insert-Cs Implanted:Qty: 1 on 10/09/2021 by Phuong Baugh MD at [facility] Right: Knee [employer] [id number] 03/24/2025 5531-G-31 0-E / / [id number] Explanted Type Area Rn Complex Care Device Identifier Shelf Expiration Date Model / Serial / Lot Uni Knee Components Explanted Explanted:Qty: 3 on 10/09/2021 by Phuong Baugh MD at [facility] Right: Knee Procedures Procedure Name Priority Date/Time Associated Diagnosis Comments GLUCOSE Routine 10/10/2021 6:47 AM CDT LIPID REFLEX TO DIRECT LDL PANEL Routine 04/12/2018 9:50 AM SHANK CEMENTER HAND CARDIOVASCULAR SCREENING; LDL GOAL LESS THAN 130 MA SCREENING BILATERAL W/ SAAD Routine 01/28/2018 1:46 PM CDT Encounter for screening mammogram for high-risk patient COLONOSCOPY - HIM SCAN 03/05/2017 12:00 AM CDT DX BONE DENSITY Routine 04/06/2016 2:23 PM SHANK CEMENTER HAND Encounter for routine adult health examination without abnormal findings HEPATITIS C SCREEN REFLEX TO HCV RNA QUANT AND GENOTYPE Routine 03/09/2016 10:01 AM SHANK CEMENTER HAND Encounter for routine adult health examination without [...] LAB - BLOOD ORDERA BLES UR LABORATORY [facility] [address] [facility], [address] [place] [address], [facility] [phone] * (ABNORMAL) Lipid panel reflex to direct LDL Fasting (04/12/2018 9:50 AM SHANK CEMENTER HAND) Cholesterol 207(H) <200 mg/dL 04/13/2018 11:36 AM SHANK CEMENTER HAND [facility] Comment:Desirable: <200 mg/d l Triglycerides 133 <150 mg/dL 04/13/2018 11:36 AM SHANK CEMENTER HAND [facility] Comment:Fasting specimen HDL Cholesterol 47(L) >49 mg/dL 11:36 AM SHANK CEMENTER HAND [facility] LDL Cholesterol Calculated 133(H) <100 mg/dL 04/13/2018 11:36 AM SHANK CEMENTER HAND [facility] Comment: Above desirable: ??100-129 mg/dl Borderline High: ??130-159 mg/dL High: ? 160-189 mg/dL Very high: ? >189 mg/dl Non HDL Cholesterol 160(H) <130 mg/dL 04/13/2018 11:36 AM SHANK CEMENTER HAND [facility] Comment: Above Desirable: ??130-159 mg/dl Borderline high: ??160-189 mg/dl High: ? 190-219 mg/dl Very high: ? >219 mg/dl Blood specimen (specimen) 04/12/2018 9:50 AM SHANK CEMENTER HAND 04/12/2018 9:55 AM SHANK CEMENTER HAND Elizabeth Romeo MD LAB - BLOOD ORDERABL ES [facility] [address] [place] [address] * MA Screen Bilateral w/Saad (01/28/2018 1:46 [...] MD Elizabeth Romeo MD IMG MAMMOGRAPHY ORDE MAXI * COLONOSCOPY - HIM SCAN (03/05/2017 12:00 AM CDT) 03/05/2017 Provider Outside PROCEDURES * DX Hip/Pelvis/Spine (04/06/2016 2:23 PM SHANK CEMENTER HAND) Anatomical Region Laterality Modality Dexa Computed Radiogr aphy Narrative 04/10/2016 8:13 AM SHANK CEMENTER HAND BONE DENSITOMETRY [address] [address] 04/06/2016 PATIENT: Arsenio Palma CHART: [id number] ?? :?? 1955 AGE:?? 60 year old SEX:?? female REFERRING PROVIDER:??Elizabeth Romeo MD PROCEDURE:?? Bone density scanning was performed using DXA technology of the lumbar spine and hip.?? Scanning was performed on a Chamelic scanner.?? Reporting is completed in the form [...] to other DXAs performed on the same Chamelic?? machine on 02/18/07 and 12/21/11. IMPRESSION Osteopenia., [...] RNA Quant and Genotype (03/09/2016 10:01 AM SHANK CEMENTER HAND) Hepatitis C Antibody Nonreactive Assay performance characteristics have not been established for newborns, infants, and children NR [facility] Blood specimen (specimen) 03/09/2016 10:01 AM SHANK CEMENTER HAND 03/09/2016 10:06 AM SHANK CEMENTER HAND Elizabeth Romeo MD LAB - BLOOD ORDERABL ES [facility] [address] [place] [address], [facility] * Pap imaged thin layer screen with HPV - recommended age 30 - 65 years (select HPV order below) (01/30/2016 12:00 AM CDT) JOSÉ MIGUEL Gamboa Report Patient Name: ARSENIO PALMA MR#: [id number] Specimen #: [id number] Collected: 01/30/2016 Received: 01/31/2016 Reported: 02/03/2016 12:11 [...] MINA Pena (ASCP) Processed and screened at [facility], [facility] CLINICAL HISTORY: LMP: 11/10/05 Previous normal pap Date of Last Pap: 01/09/13, Papanicolaou Test Limitations: ??Cervical cytology is a screening test with limited sensitivity; regular screening is critical for cancer prevention; Pap tests are primarily effective for the diagnosis/preventi on of squamous cell carcinoma, not adenocarcinomas or other cancers. TESTING LAB LOCATION: [address] ??[address] COLLECTION SITE: Client: ??[facility] Location: EVELIA GAMBOA (R) Cytologic material (specimen) 01/30/2016 01/31/2016 10:20 AM CDT Elizabeth Romeo MD LAB - OPTIME CLINICA L SPECIMEN COPATH from Last 3 Months or Most Recently Relevant to Health Maintenance Advance Directives For more information, please contact: [phone] Documents on File Type Date Recorded Patient Reconciling Clerk Expl anation Advance Directives and Living Will [...] Brock Significant other Health Care Agent Rom Louis Friend First Alternate Health Care Agent Care Teams Hcc Coders Relationship Specialty Start Date End Date Janelle Dewitt MD [facility] & [address] [address] PCP - General Internal Medicine 01/14/21 Kyle Garza MD Family Medicine - Sports Medicine 12/24/14 Phuong Baugh MD [address] [place] [address] Assigned Musculoskeletal Provider 12/13/21
--- OUTSIDE RECORDS SUMMARY | 2023-08-25 07:18 | XMS_ITS | Encounter Summary ---
Author Name Unknown Organization [facility] Address [address] [place] [address] Care Team Providers Care Surgical Instruments Inspector Name Role Phone Kyle Garza MD Unavailable [phone] Elizabeth Romeo MD Unavailable Janelle Dewitt MD Primary Care Provider Phuong Baugh MD Unavailable Chanelle Segura MD Unavailable [phone] Marisol Fernandez PA-C Unavailable Phuong Baugh MD Unavailable [phone] Encounter Details Date Type Department Care Team (Late st Contact Info) Description 03/10/2021 [facility] [place] [address] [phone] Ginger Longo, PT MARIAA DIAS [address] [place] [address] [place]F [address] Social History Tobacco Use Types Packs/Day Years [...] have Coronavirus / COVID-19? No / Unsure 03/03/2021 11:13 AM CDT documented as of this encounter Plan of Treatment Not on file documented as of this encounter Visit Diagnoses Not on filedocumented in this encounter Care Teams Surgical Instruments Inspector Relationship Specialty Start Date End Date Janelle Dewitt MD [facility] [address] [place] [address] PCP - General Internal Medicine 01/14/21 Kyle Garza MD Family Medicine - Sports Medicine 12/24/14 Elizabeth Romeo MD [address] [id number] Assigned PCP 07/23/19 04/12/21 Phuong Baugh MD [address] [place] [id number] Assigned Musculoskeletal Provider 01/19/21 11/21/21 Chanelle Segura MD [address] [place] [address] Assigned PCP 04/13/21 07/19/21 Marisol Fernandez PA-C [address] [place] [id number] Assigned Musculoskeletal Provider 11/22/21 12/12/21 Phuong Baugh MD [address] [place] [address] Assigned Musculoskeletal Provider 12/13/21 documented as of this encounter
--- OUTSIDE RECORDS SUMMARY | 2023-08-25 07:18 | XMS_ITS | Encounter Summary ---
Author Name Unknown Organization [facility] Address [address] [place] [address] Care Team Providers Care Marketing Technologist Name Role Phone Kyle Garza MD Unavailable [phone] Janelle Dewitt MD Primary Care Provider Phuong Baugh MD Unavailable Marisol Fernandez PA-C Unavailable Phuong Baugh MD Unavailable Encounter Details Date Type Department Care Team (Late st Contact Info) Description 09/03/2021 [facility] [address] [address] Phuong Baugh MD [address] [place] [address] Social History Tobacco Use Types Packs/Day [...] on filedocumented in this encounter Care Teams Marketing Technologist Relationship Specialty Start Date End Date Janelle Dewitt MD [address] [address] PCP - General Internal Medicine 01/14/21 Kyle Garza MD Family Medicine - Sports Medicine 12/24/14 Phuong Baugh MD [address] [place] [address] Assigned Musculoskeletal Provider 01/19/21 11/21/21 Marisol Fernandez PA-C [address] [place] [address] Assigned Musculoskeletal Provider 11/22/21 12/12/21 Phuong Baugh MD [address] [place] [address] Assigned Musculoskeletal Provider 12/13/21 documented as of this encounter
--- OUTSIDE RECORDS SUMMARY | 2023-08-25 07:18 | XMS_ITS | Encounter Summary ---
Author Name Unknown Organization [facility] Address [address] [place] [address] Care Team Providers Care Manager Business Systems Name Role Phone Kyle Garza MD Unavailable Elizabeth Romeo MD Unavailable Janelle Dewitt MD Primary Care Provider [phone] Phuong Baugh MD Unavailable Chanelle Segura MD Unavailable [phone] Marisol Fernandez PA-C Unavailable [phone] Phuong Baugh MD Unavailable [phone] Encounter Details Date Type Department Care Team (Late st Contact Info) Description 04/01/2021 [facility] Advice [facility] [address] [place] [address] Phuong Baugh MD [address] [place] [address] Social History Tobacco Use Types Packs/Day [...] on filedocumented in this encounter Care Teams Manager Business Systems Relationship Specialty Start Date End Date Janelle Dewitt MD [address] [address] PCP - General Internal Medicine 01/14/21 Kyle Garza MD Family Medicine - Sports Medicine 12/24/14 Elizabeth Romeo MD [address] [phone] Assigned PCP 07/23/19 04/12/21 Phuong Baugh MD [address] [place] [id number] Assigned Musculoskeletal Provider 01/19/21 11/21/21 Chanelle Segura MD [address] [place] [address] Assigned PCP 04/13/21 07/19/21 Marisol Fernandez PA-C [address] [place] [id number] Assigned Musculoskeletal Provider 11/22/21 12/12/21 Phuong Baugh MD [address] [place] [address] Assigned Musculoskeletal Provider 12/13/21 documented as of this encounter
--- OUTSIDE RECORDS SUMMARY | 2023-08-25 07:19 | XMS_ITS | Encounter Summary ---
Author Name Unknown Organization [facility] Address [address] [place] [address] Care Team Providers Care Plastic Extruding Machine Operator Name Role Phone Elizabeth Romeo MD Primary Care Provider [phone] Kyle Garza MD Unavailable Elizabeth Romeo MD Unavailable Elizabeth Romeo MD Unavailable Chanelle Segura MD Unavailable [phone] Elizabeth Romeo MD Unavailable Janelle Dewitt MD Primary Care Provider Phuong Baugh MD Unavailable [phone] Chanelle Segura MD Unavailable [phone] Marisol Fernandez PA-C Unavailable [phone] Phuong Baugh MD Unavailable [phone] Reason for Visit * Reason Onset Date Comments Outreach 11/18/2012 Preventative hea lth screening Encounter Details Date Type Department Care Team (Late st Contact Info) Description 11/18/2012 Telephone [employer] [address] [place] [address] Elizabeth Romeo MD [address] [place] [address] Outreach (Preventative health screening) Social History Tobacco Use Types Packs/Day Years Used Date Smoking Tobacco: Never Smokeless Tobacco: Never Alcohol Use Standard Drinks/Week Comments Yes 0 (1 standard drink = 0.6 oz pur e alcohol) occas. Sex and Gender Information Value Date Recorded Sex Assigned at Female 01/09/2021 11:55 AM CDT Gender Identity Female 01/09/2021 11:55 AM CDT Sexual Orientation Not on file documented as of this encounter Miscellaneous Notes * Telephone Encounter - Elizabeth Romeo MD - 01/09/2013 1:17 PM CDT See appt. * Telephone Encounter - Aly Mena - 11/18/2012 3:34 PM CDT 11/18/2012 Call Regarding Preventive Health Screening Mammogram and Cervical/PAP Attempt 1 Message on answering machine Comments: Outreach Staffing Rn Aly Lafleur documented in this encounter Plan of Treatment Not on file documented as of this encounter Visit Diagnoses Not on filedocumented in this encounter Care Teams Plastic Extruding Machine Operator Relationship Specialty Start Date End Date Elizabeth Romeo MD [address] [place] [address] PCP - General 08/10/02 01/13/21 Elizabeth Romeo MD [address] [place] [address] PCP - Assigned PCP 01/30/18 07/05/18 Janelle Dewitt MD [facility] & [address] [address] PCP - General Internal Medicine 01/14/21 Kyle Garza MD [address] [place] [address] Family Medicine - Sports Medicine 12/24/14 Elizabeth Romeo MD [address] [address] Assigned PCP 01/30/18 04/08/19 Chanelle Segura MD [address] [place] [address] Assigned PCP 04/09/19 07/22/19 Elizabeth Romeo MD [address] [address] Assigned PCP 07/23/19 04/12/21 Phuong Baugh MD [address] [place] [address] Assigned Musculoskeletal Provider 01/19/21 11/21/21 Chanelle Segura MD [address] [place], [place] 762777 Assigned PCP 04/13/21 07/19/21 Marisol Fernandez PA-C [address] [place] [address] Assigned Musculoskeletal Provider 11/22/21 12/12/21 Phuong Baugh MD [address] [place] [phone] Assigned Musculoskeletal Provider 12/13/21 documented as of this encounter
--- OUTSIDE RECORDS SUMMARY | 2023-08-25 07:19 | XMS_ITS | Encounter Summary ---
Author Name Unknown Organization [facility] Address [address] [place] [address] Care Team Providers Care Railcar Brake Operator Name Role Phone Elizabeth Romeo MD Primary Care Provider [phone] Kyle Garza MD Unavailable Elizabeth Romeo MD Unavailable Elizabeth Romeo MD Unavailable Chanelle Segura MD Unavailable Elizabeth Romeo MD Unavailable Janelle Dewitt MD Primary Care Provider Phuong Baugh MD Unavailable [phone] Chanelle Segura MD Unavailable [phone] Marisol Fernandez PA-C Unavailable [phone] Phuong Baugh MD Unavailable [phone] Encounter Details Date Type Department Care Team (Late st Contact Info) Description 02/16/2011 [facility] [address] [place] [address] Mady Palma RN Social History Tobacco Use Types Packs/Day Years Used Date Smoking Tobacco: Never Alcohol Use Standard Drinks/Week Comments [...] on filedocumented in this encounter Care Teams Railcar Brake Operator Relationship Specialty Start Date End Date Elizabeth Romeo MD [address] [place] [address] PCP - General 08/10/02 01/13/21 Elizabeth Romeo MD [address] [place] [address] PCP - Assigned PCP 01/30/18 07/05/18 Janelle Dewitt MD [address] [address] PCP - General Internal Medicine 01/14/21 Kyle Garza MD [address] [place] [address] Family Medicine - Sports Medicine 12/24/14 Elizabeth Romeo MD [address] [place] [address] Assigned PCP 01/30/18 04/08/19 Chanelle Segura MD [address] [place] [address] Assigned PCP 04/09/19 07/22/19 Elizabeth Romeo MD [address] [facility] [place] [address] Assigned PCP 07/23/19 04/12/21 Phuong Baugh MD [address] [place] [address] Assigned Musculoskeletal Provider 01/19/21 11/21/21 Chanelle Segura MD [address] [place] [address] Assigned PCP 04/13/21 07/19/21 Marisol Fernandez PA-C [address] [place] [address] Assigned Musculoskeletal Provider 11/22/21 12/12/21 Phuong Baugh MD [address] [place] [address] Assigned Musculoskeletal Provider 12/13/21 documented as of this encounter
--- OUTSIDE RECORDS SUMMARY | 2023-08-25 07:19 | XMS_ITS | Encounter Summary ---
Author Name Unknown Organization [facility] Address [address] [place] [address] Care Team Providers Care Retail Store Associate Name Role Phone Elizabeth Romeo MD Primary Care Provider Kyle Garza MD Unavailable Elizabeth Romeo MD Unavailable Elizabeth Romeo MD Unavailable Chanelle Segura MD Unavailable Elizabeth Romeo MD Unavailable Janelle Dewitt MD Primary Care Provider Phuong Baugh MD Unavailable [phone] Chanelle Segura MD Unavailable Marisol Fernandez PA-C Unavailable [phone] Phuong Baugh MD Unavailable [phone] Reason for Visit * Reason Onset Date Comments Refill Request 04/30/2014 methocarbamol 75 0mg Encounter Details Date Type Department Care Team (Late st Contact Info) Description [facility] [address] [place] [address] Elizabeth Romeo MD [address] [address] Refill Request (methocarbamol 750mg) Social History Tobacco Use Types Packs/Day Years Used Date Smoking Tobacco: Never Smokeless Tobacco: Never Alcohol Use Standard Drinks/Week Comments Yes 0 (1 standard drink = 0.6 oz pure alcohol) occas., 2 per month, before dinner Sex and Gender Information Value Date Recorded Sex Assigned at Female 01/09/2021 11:55 AM CDT Gender Identity Female 01/09/2021 11:55 AM CDT Sexual Orientation Not on file documented as of this encounter Miscellaneous Notes * Telephone Encounter - Cat Munoz RN - 04/30/2014 2:54 PM CST Provider approval needed. Last OV 12/01/13 Last Fill 03/07/14 E AIDE * Telephone Encounter - Martine Coburn - 04/30/2014 11:58 AM CST Last fill 03/07/2014 Last Qty 60 Martine Coburn[facility] documented in this encounter Plan of Treatment Not on file documented as of this encounter Visit Diagnoses Diagnosis Back muscle spasm- Primary Other symptoms referable to back documented in this encounter Care Teams Retail Store Associate Relationship Specialty Start Date End Date Elizabeth Romeo MD [address] [address] PCP - General 08/10/02 01/13/21 Elizabeth Romeo MD [address] [address] PCP - Assigned PCP 01/30/18 07/05/18 Janelle Dewitt MD [facility] & [address] [address] PCP - General Internal Medicine 01/14/21 Kyle Garza MD [address] [address] Family Medicine - Sports Medicine 12/24/14 Elizabeth Romeo MD [address] [address] Assigned PCP 01/30/18 04/08/19 Chanelle Segura MD [address] [place] [address] Assigned PCP 04/09/19 07/22/19 Elizabeth Romeo MD [address] [address] Assigned PCP 07/23/19 04/12/21 Phuong Baugh MD [address] [place] [address] Assigned Musculoskeletal Provider 01/19/21 11/21/21 Chanelle Segura MD [address] [place] [address] Assigned PCP 04/13/21 07/19/21 Marisol Fernandez PA-C [address] [place] [address] Assigned Musculoskeletal Provider 11/22/21 12/12/21 Phuong Baugh MD [address] [place] [address] Assigned Musculoskeletal Provider 12/13/21 documented as of this encounter
--- OUTSIDE RECORDS SUMMARY | 2023-08-25 07:19 | XMS_ITS | Encounter Summary ---
Author Name Unknown Organization [facility] Address [address] [place] [address] Care Team Providers Care Knife Glazer Name Role Phone Elizabeth Romeo MD Primary Care Provider Kyle Garza MD Unavailable [phone] Elizabeth Romeo MD Unavailable Elizabeth Romeo MD Unavailable Chanelle Segura MD Unavailable Elizabeth Romoe MD Unavailable Janelle Dewitt MD Primary Care Provider Phuong Baugh MD Unavailable [phone] Chanelle Segura MD Unavailable [phone] Marisol Fernandez PA-C Unavailable [phone] Phuong Baugh MD Unavailable [phone] Encounter Details Date Type Department Care Team (Late st Contact Info) Description 02/02/2014 MyC Medical Advice Initial Department Yovana Singh Social History Tobacco Use Types Packs/Day Years [...] on filedocumented in this encounter Care Teams Knife Glazer Relationship Specialty Start Date End Date Elizabeth Romeo MD [address] [place] [address] PCP - General 08/10/02 01/13/21 Elizabeth Romeo MD [address] [address] PCP - Assigned PCP 01/30/18 07/05/18 Janelle Dewitt MD [address] [address] PCP - General Internal Medicine 01/14/21 Kyle Garza MD [address] [address] Family Medicine - Sports Medicine 12/24/14 Elizabeth Romeo MD [address] [address] Assigned PCP 01/30/18 04/08/19 Chanelle Segura MD [address] [place], [place] 9[address]457 Assigned PCP 04/09/19 07/22/19 Elizabeth Romeo MD [address] 830027 Assigned PCP 07/23/19 04/12/21 Phuong Baugh MD [address] [place] [address] Assigned Musculoskeletal Provider 01/19/21 11/21/21 Chanelle Segura MD [facility] [place] [address] Assigned PCP 04/13/21 07/19/21 Marisol Fernandez PA-C [address] [place] [address] Assigned Musculoskeletal Provider 11/22/21 12/12/21 Phuong Baugh MD [address] [place] [address] Assigned Musculoskeletal Provider 12/13/21 documented as of this encounter
== END 2023-08-24 08:31 | disposition home or self-care (01) ==
LOC: NFLDREF 08-25 07:16
PROVIDERS: PCP Internal Medicine; Referring Provider Internal Medicine; Visit Provider Internal Medicine
DX: M85.80 Other specified disorders of bone density and structure, unspecified site (principal); E78.5 Hyperlipidemia, unspecified
CPT/HCPCS: 80061; 82306

== ENCOUNTER 2024-02-25 12:56 | Outpatient (CLI) | payer MEDICARE, BC, SELFPAY ==
--- OUTSIDE RECORDS SUMMARY | 2024-02-25 12:59 | XMS_ITS | Encounter Summary ---
Author Organization [facility] Address [address] [place] [address]. [place] [address] Care Team Providers Care Machinery Repair Maintenance Supervisor Name Role Phone Kyle Garza MD Unavailable [phone] Janelle Dewitt MD Primary Care Provider Vance Holliday MD Unavailable [phone] Encounter Details Date Type Department Care Team (Latest Contact Info) Description 02/24/2024 Travel Social History Tobacco Use Types Packs/Day Years Used Date Smoking Tobacco: Never Smokeless Tobacco: Never Alcohol Use Standard Drinks/Week Comments Yes 0 (1 standard drink = 0.6 oz pure alcohol) occas., 2 per month, before dinner PHQ-2 Answer Date Recorded PHQ-2 Score 0 10/07/2021 Adolescent Education Answer Date Record ed Getting School Help Needed Not on file 02/02 Interpersonal Safety Answer Date Record ed Do you feel physically and e motionally safe where you currently live? Yes 02/18/2024 Within the past 12 months, h ave you been hit, slapped, kicked or otherwise physically hurt by someone? No 02/18/2024 Within the past 12 months, h ave you been humiliated or emotionally abused in other ways by your partner or ex-partner? 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 DRAMA Gender Identity Female 01/09/2021 11:55 AM CDT Sexual Orientation Not on file documented as of this encounter Plan of Treatment Upcoming Encounters Date Type Department Care Team (Late st Contact Info) Description 03/02/2024 10:20 AM CDT Therapy Visit [facility] [address] [facility] [address] [place] [address] Vance Holliday MD [address] [place] [address] Tomi Campa, PT [address] [facility] [address] [place] [address] documented as of this encounter Visit Diagnoses Not on filedocumented in this encounter Care Teams Machinery Repair Maintenance Supervisor Relationship Specialty Start Date End Date aJnelle Dewitt MD [facility] [address] [place] [address] PCP - General Internal Medicine 01/14/21 Kyle Garza MD Family Medicine - Sports Medicine 12/24/14 Vance Holliday MD [address] [place] [id number] Assigned Musculoskeletal Provider 02/23/24 documented as of this encounter
--- OUTSIDE RECORDS SUMMARY | 2024-02-25 12:59 | XMS_ITS | Clinical Summary ---
Author Organization [facility] Address [address] [place] [address] Care Team Providers Care Silk Screener Name Role Phone Kyle Garza MD Unavailable [phone] Janelle Dewitt MD Primary Care Provider Vance Holliday MD Unavailable [phone] Allergies Active Allergy Reactions Criticality Noted Date Comments Cats Difficulty breathing 11/08/2001 Dust Mite Extract 01/14/2021 Minocycline Hives 11/08/2001 Tetracycline Hives 11/08/2001 Medications calcium carbonate (OS-CASPER 500 MG [place]. [place]) 500 MG tablet Take 500 mg by mouth 2 times daily Active MAGNESIUM OXIDE PO Take 250 mg by mouth daily Active Multiple Vitamins-Mineral s (VITAMINS & MINERALS CAPS OR) Take 1 capsule by mouth daily Active glucosamine-mehreen droitin 500-400 MG CAPS per capsule Take 1 capsule by mouth daily Active psyllium 400 MG capsule Take 1 capsule by mouth 2 times daily Active acetaminophen (TYLENOL) 325 MG tabletIndication s:Status post total right knee replacement Take 2 tablets (650 mg) by mouth every 4 hours as needed for other 60 tablet 2 Active aspirin (ASA) 81 MG EC tabletIndication s:VTE Prophylaxis Take 2 tablets (162 mg) by mouth daily 60 tablet 2 Active melatonin 5 MG tablet Take 5 mg by mouth At Bedtime Active amoxicillin (AMOXIL) 500 MG capsuleIndicatio ns:S/P knee surgery Take 4 tablets (2,000mg) one hour before dental appointment or non-sterile procedures 4 capsule 3 Active Active Problems Problem Noted Date Diagnosed Date Status post total right knee replacement 022 Primary localized osteoarthrosis, lower leg 04/02 CARDIOVASCULAR SCREENING; LDL GOAL LESS THAN 130 03/02/2010 Chronic rhinitis 01/21/2007 Resolved Problems Problem Noted Date Diagnosed Date Resolved Date Right knee pain 02/05/2021 04/10/2021 Advanced directives, counseling/discussion 01/09/2014 10/18/2023 Overview (01/09/2014): Advance Care Planning: Receipt of ACP document: [...] status. Added by Ryann Souza on 01/09/2014. Tear meniscus knee 07/11/2013 6 Esophageal reflux 01/22/2006 10/30/2011 Depressive disorder, not elsewhere classified 05/28/19 04 02/24/2008 Displacement of intervertebr al disc, site unspecified, without myelopathy 08/10/2002 02/24/20 08 Encounters Date Type Department Care Team Description 02/24/2024 12:50 PM CDT Therapy Visit [address] [place] [address] Vance Holliday MD Stout, Grayson T, PT Chronic pain of left knee (Primary Dx) 02/24/2024 Travel 02/18/2024 10:20 AM CDT Therapy Visit [address] [place] [address] Vance Holliday MD Stout, Grayson T, PT Chronic pain of left knee 02/18/2024 Travel 02/15/2024 Travel 01/28/2024 2:20 PM CDT Ancillary Procedure [facility] [place] [id number] [place] [address] [address] [place] [address] Vance Holliday MD Left knee pain 01/28/2024 2:00 PM CDT Office Visit [facility] [address] [place] [address] Vance Holliday MD Chronic pain of left knee (Primary Dx); S/P left unicompartmental knee replacement 01/28/2024 Travel 01/23/2024 Travel from Last 3 Months Immunizations Name Administration Dates Next Due Influenza [...] AM CDT Legal Sex Female 2:58 AM CHILDREN'S AUTHOR Gender Identity Female 01/09/2021 11:55 AM CDT [...] CDT Inhaled Oxygen Concentration - - Weight 68 kg (150 lb) 01/28/2024 1:52 PM CDT Height 163.8 cm (5' 4.5) 01/28/2024 1:52 PM CDT Body Mass Index 25.35 01/28/2024 1:52 PM CDT Plan of Treatment Upcoming Encounters Date Type Department Care Team (Late st Contact Info) Description 03/02/2024 10:20 AM CDT Therapy Visit [facility] [address] [facility] [address] [place] [phone] Vance Holliday MD [address] [place], [place] [phone] Tomi Campa, PT [address] [facility] [address] [place] [address] Health Maintenance Due Date Last Done Comments ANNUAL REVIEW OF HM ORDERS 1955 [address] COLONOGRAPHY 1955 FIT 1955 FLEX SIG 1955 sDNA (Cologuard) 1955 MAMMO SCREENING 01/28/2019 01/28/2018, 12/03, 03/29/2015, Additional history exists FALL RISK ASSESSMENT 10/05/2020 07/18/2018, 04/07/20 MEDICARE ANNUAL WELLNESS VISIT 10/05/2020 04/07/2018, 01/30/2016, 01/09/2013, Additional history exists LIPID 04/12/2023 04/12/2018, 1111/2015, 01/17/2013, Additional history exists PHQ-2 (once per calendar year) 2023 10/07/2021, 01/14/2021, 07/18/2018, Additional history exists INFLUENZA VACCINE (#1) 2024 , 01/01/2023, 02/19/2022, Additional history exists GLUCOSE 10/10/2024 10/10/2021, 01/2022, 05/05/2021, Additional history exists ADVANCE CARE PLANNING 10/17/2026 10/17/2021 , 01/09/2014, 01/09/2014 RSV VACCINE (1 - 1-dose 75+ series) 10/05/2030 DEXA 04/06/2031 04/06/2016, 12/02, 02/18/2007 COLONOSCOPY 09/09/2032 09/09/2022, 07/2016, 05/21/2011, Additional history exists COLORECTAL CANCER SCREENING 09/09/2032 DTAP/TDAP/TD IMMUNIZATION (3 - Td or Tdap) 12/31/2032 12/31/2022, 01/09/2013, 01/22/2006 PAP Discontinued 01/30/2016, 01/2013, 01/09/2013, Additional history exists HEPATITIS C SCREENING Completed 03/09/2016 ZOSTER IMMUNIZATION Completed 09/08/2018, 04/07/2018, 01/30/2016 Pneumococcal Vaccine: 65+ Years Completed 08/24/2022, 01/20/2021, 01/20/2021 COVID-19 Vaccine Completed 01/19/2024, , 01/27/2023, Additional history exists HPV IMMUNIZATION Aged Out No longer e ligible based on patient's age to complete this topic MENINGITIS IMMUNIZATION Aged Out No l onger eligible based on patient's age to complete this topic RSV MONOCLONAL ANTIBODY Aged Out No l onger eligible based on patient's age to complete this topic Medical Devices Implanted Type Area Traffic Representative Device Identifier Shelf Expiration Date Model / Serial / Lot Bone Cement Simplex W/Tobramycin 6197-9-001 - [id number] Implanted:Qty: 1 on 10/09/2021 by Phuong Baugh MD at [facility] Cement, Bone Right: Knee [employer] 01/30/2023 6197-9-00 1 / / [id number] Imp Insert Baseplate Tibial Howm Tri 3 5521-B-300 - [id number] Implanted:Qty: 1 on 10/09/2021 by Phuong Baugh MD at [facility] Total Joint Component /Insert Right: Knee [employer] [id number] 04/03/2026 5521-B-30 0 / / [id number] Imp Comp Fem Strk Triathln Cr Rt 2 5510-F-202 - [id number] Implanted:Qty: 1 on 10/09/2021 by Phuong Baugh MD at [facility] Total Joint Component /Insert Right: Knee [employer] [id number] 03/27/2026 5510-F-20 2 / / [id number] Imp Comp Patella Strk Tri Sym X3 29x8mm 5550-G-298 - [id number] Implanted:Qty: 1 on 10/09/2021 by Phuong Baugh MD at [facility] Total Joint Component /Insert Right: Knee [employer] [id number] 02/06/2023 5550-G-29 8 / / [id number] Triathlon Tibial Bearing Insert-Cs Implanted:Qty: 1 on 10/09/2021 by Phuong Baugh MD at [facility] Right: Knee [employer] [id number] 03/24/2025 5531-G-31 0-E / / [id number] Explanted Type Area Traffic Representative Device Identifier Shelf Expiration Date Model / Serial / Lot Uni Knee Components Explanted Explanted:Qty: 3 on 10/09/2021 by Phuong Baugh MD at [facility] Right: Knee Procedures Procedure Name Priority Date/Time Associated Diagnosis Comments XR KNEE STANDING AP SUNRISE BILAT LAT LEFT Routine 01/28/2024 2:32 PM CDT Left knee pain GLUCOSE Routine 10/10/2021 6:47 AM CDT LIPID REFLEX TO DIRECT LDL PANEL Routine 04/12/2018 9:50 AM CHILDREN'S AUTHOR CARDIOVASCULAR SCREENING; LDL GOAL LESS THAN 130 MA SCREENING BILATERAL W/ SAAD Routine 01/28/2018 1:46 PM CDT Encounter for screening mammogram for high-risk patient COLONOSCOPY - HIM SCAN 03/05/2017 12:00 AM CDT DX BONE DENSITY Routine 04/06/2016 2:23 PM CHILDREN'S AUTHOR Encounter for routine adult health examination without abnormal findings HEPATITIS C SCREEN REFLEX TO HCV RNA QUANT AND GENOTYPE Routine 03/09/2016 10:01 AM CHILDREN'S AUTHOR Encounter for routine adult health examination without abnormal findings PAP IMAGED THIN LAYER SCREEN Routine 01/30/2016 12:00 AM CDT Encounter for routine adult health examination without abnormal findings from Last 3 Months or Most Recently Relevant to Health Maintenance Results * XR Knee Standing AP Valier Bilat Lat Left (01/28/2024 2:32 PM CDT) Anatomical Region Laterality Modality Knee Bilateral Computed Radiogr aphy Impressions 01/28/2024 3:51 PM CDT IMPRESSION: Postoperative changes medial compartment replacement. There is a joint effusion and loose bodies. There is mild to moderate arthrosis of the patellofemoral compartment. No evidence of an acute fracture. Views of the right knee show changes of a total knee replacement. ROM PETERSON MD SYSTEM ID: ??[id number] Narrative 01/28/2024 3:51 PM CDT XR KNEE STANDING AP SUNRISE BILAT LAT LEFT 01/28/2024 2:32 PM HISTORY: Left knee pain. COMPARISON: 04/07/2022. Procedure Note Rom Peterson MD - 01/28/2024 XR KNEE STANDING AP SUNRISE BILAT LAT LEFT 01/28/2024 2:32 PM HISTORY: Left knee pain. COMPARISON: 04/07/2022. IMPRESSION: Postoperative changes medial compartment replacement. There is a joint effusion and loose bodies. There is mild to moderate arthrosis of the patellofemoral compartment. No evidence of an acute fracture. Views of the right knee show changes of a total knee replacement. ROM PETERSON MD SYSTEM ID: [id number] Vance Holliday MD IMG DIAGNOSTIC IMAGING ORDER [place] Final Result * (ABNORMAL) Glucose (10/10/2021 6:47 AM CDT) Glucose 109(H) 70 - 99 mg/dL 10/10/2021 7:46 AM CDT [facility] Patient Fasting > 8hrs? Yes 10/10/2021 7:46 AM CDT UR LAB[facility] Blood STRUCTURE OF RIGHT UPPER LIMB / Unknown Venipuncture / Unknown 10/10/2021 6:47 AM CDT 10/10/2021 7:22 AM CDT Phuong Baugh MD LAB - BLOOD ORDERABLES Fin al Result UR LABORATORY [facility] [address] [facility] [place] [address], [facility] [phone] * (ABNORMAL) Lipid panel reflex to direct LDL Fasting (04/12/2018 9:50 AM CHILDREN'S AUTHOR) Cholesterol 207(H) <200 mg/dL 04/13/2018 11:[address] [facility] Comment:Desirable: <200 mg/d l Triglycerides 133 <150 mg/dL 04/13/2018 11:[address] [facility] Comment:Fasting specimen HDL Cholesterol 47(L) >49 mg/dL 8 11:[address] [facility] LDL Cholesterol Calculated 133(H) <100 mg/dL 04/13/2018 11:[address] [facility] Comment: Above desirable: ??100-129 mg/dl Borderline High: ??130-159 mg/dL High: ? 160-189 mg/dL Very high: ? >189 mg/dl Non HDL Cholesterol 160(H) <130 mg/dL 04/13/2018 11:[address] [facility] Comment: Above Desirable: ??130-159 mg/dl Borderline high: ??160-189 mg/dl High: ? 190-219 mg/dl Very high: ? >219 mg/dl Blood specimen (specimen) 04/12/2018 9:50 AM CHILDREN'S AUTHOR 04/12/2018 9:55 AM CHILDREN'S AUTHOR Elizabeth Bliss MD LAB - BLOOD ORDERABLES Final Res ult [facility] [address] [place] [address] * MA Screen Bilateral w/Saad (01/28/2018 1:46 [...] mailed to patient. FEI CHOWDHURY MD Elizabeth Bliss MD IMG MAMMOGRAPHY ORDERABLES Final Result * COLONOSCOPY - HIM SCAN (03/05/2017 12:00 AM CDT) 03/05/2017 Provider Outside PROCEDURES Final Result * DX Hip/Pelvis/Spine (04/06/2016 2:23 PM CHILDREN'S AUTHOR) Anatomical Region Laterality Modality Dexa Computed Radiogr aphy Narrative 04/10/2016 8:13 AM CHILDREN'S AUTHOR BONE DENSITOMETRY [address] [address] 04/06/2016 PATIENT: Arsenio Palma CHART: [id number] ?? :?? 1955 AGE:?? 60 year old SEX:?? female REFERRING PROVIDER:??Elizabeth Bliss MD PROCEDURE:?? Bone density scanning was performed using DXA technology of the lumbar spine and hip.?? Scanning was performed on a Doorbot scanner.?? Reporting is completed in the form [...] to other DXAs performed on the same Doorbot?? machine on 02/18/07 and 12/21/11. IMPRESSION Osteopenia., [...] can be considered in 5 years. Elizabeth Bliss M.D. Electronically signed Elizabeth Bliss MD IMG DEXA ORDERABLES Final Result * Hepatitis C Screen Reflex to HCV RNA Quant and Genotype (03/09/2016 10:01 AM CHILDREN'S AUTHOR) Hepatitis C Antibody Nonreactive Assay performance characteristics have not been established for newborns, infants, and children NR [facility] Blood specimen (specimen) 03/09/2016 10:01 AM CHILDREN'S AUTHOR 03/09/2016 10:06 AM CHILDREN'S AUTHOR Elizabeth Bliss MD LAB - BLOOD ORDERABLES Final Res ult [facility] [address] [place] [address], [facility] * Pap imaged thin layer screen with HPV - recommended age 30 - 65 years (select HPV order below) (01/30/2016 12:00 AM CDT) PAP KATINA [facility] Report Patient Name: ARSENIO PALMA MR#: [id number] Specimen #: [id number] Collected: 01/30/2016 Received: 01/31/2016 Reported: 02/03/2016 12:11 Ordering Phy(s): ELIZABETH BLISS SPECIMEN/STAIN PROCESS: Pap imaged thin layer prep screening (Surepath, FocalPoint with guided screening) ? Pap-Cyto x 1, HPV ordered x 1 SOURCE: Cervical, endocervical Pap imaged thin layer prep screening (Surepath, FocalPoint with guided screening) SPECIMEN ADEQUACY: Satisfactory for evaluation. -Transformation zone component absent. CYTOLOGIC INTERPRETATION: Negative for Intraepithelial Lesion or Malignancy Electronically signed out by: MINA Pena (ASCP) Processed and screened at [facility], [facility] CLINICAL HISTORY: LMP: 11/10/05 Previous normal pap Date of Last Pap: 01/09/13, Papanicolaou Test Limitations: ??Cervical cytology is a screening test with limited sensitivity; regular screening is critical for cancer prevention; Pap tests are primarily effective for the diagnosis/preventi on of squamous cell carcinoma, not adenocarcinomas or other cancers. TESTING LAB LOCATION: [address] ??[id number] COLLECTION SITE: Client: ??[facility] Location: EVELIA GAMBOA (R) Cytologic material (specimen) 01/30/2016 01/31/2016 10:20 AM CDT us Elizabeth Bliss MD LAB - OPTIME CLINICAL SPECIMEN F inal Result COPATH from Last 3 Months or Most Recently Relevant to Health Maintenance Insurance MEDICARE [facility] Member Subscriber Plan / Payer (Ef fective 2020-Present) Name:Arsenio Palma Relation to Subscriber:Self Name:Arsenio Palma Payer ID:[id number] ([facility]) Type:[facility] Address: [address] [address] [place] [address] MEDICARE [facility] BL[facility] MEDICARE [facility] BL[facility] MEDICARE [facility] BLUE MEDICARE MEDICARE Advance Directives For more information, please contact: [phone] Documents on File Type Date Recorded Patient Matrix Bath Attendant Expl anation Advance Directives and Living Will [...] Brock Significant other Health Care Agent Rom Myers Friend First Alternate Health Care Agent Care Teams Silk Screener Relationship Specialty Start Date End Date Janelle Dewitt MD [address] [address] PCP - General Internal Medicine 01/14/21 Kyle Garza MD Family Medicine - Sports Medicine 12/24/14 Vance Holliday MD [address] [place] [id number] Assigned Musculoskeletal Provider 02/23/24
--- OUTSIDE RECORDS SUMMARY | 2024-02-25 12:59 | XMS_ITS | Data Portability ---
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 [email or web address] Not available 12/01/2022 13:10:58 12/16/2022 12/16/2022 Today I reviewed the diagnosis, contributing factors and treatment plan. I reinforced self-care strategies, home exercises and encouraged compliance. Daily home care was advised. The intraoral appliance fit was reviewed and no further adjustments were made to the appliance to improve fit and comfort. I reviewed outcomes of care continued use of home self care and oral appliance use. I recommended continued care with home self-care and physical therapy. CT from [facility] reviewed today - The image reveals advanced degenerative joint changes in both condyles presenting with flattening, irregularity and subchondral cyst formation. Severe restriction of mandibular movement was also noted on the right side. I discussed the importance of continue home exercises to maintain joint function. I encouraged Ángela to use topical Voltaren 1% gel as needed to help with pain. I reinforced the two-phase treatment plan for stabilizing the joints followed by occlusal rehabilitation. I discussed joint stabilization may take 6 months to a year after which time follow up imaging may be needed. I discussed the patient's history and plan of action with the rendering team provider. They were advised to follow-up in 3 months. History today was obtained from the patient. The patient has 4 diagnoses they would like to address. Their symptoms are improving. This case is moderate complexity because of multiple diagnoses with chronic symptoms. Data reviewed included outside records - medical CT imaging. Discussion with treatment team members after visit was necessary. Risk of complications include disease progression were discussed. Today time spent may have included a review of past records, history taking, review of diagnoses, contributing factors, treatment plan, diagnostic testing, prognosis, expectations, risks and complications of treatment/no treatment, discussions with other providers and completing documentation was 35. Not available 12/18/2022 10:58:13 02/10/2023 02/10/2023 Today I reviewed the diagnosis, contributing factors and treatment options. I reviewed and reinforced continued use of self care and home exercises. I encouraged daily home care use which may consist of heat and ice compresses, oral habit reduction and relaxation techniques. The intraoral appliance did not require additional adjustment. The appliance presents well balanced with posterior contacts bilaterally. No adjustments were needed today. Today i reviewed Ángela's symptoms and presentation. I reviewed the panoramic imaging and CT obtained in the previous visit. I discussed that bite changes are usually a combination of joint and muscle activity. Improvement in physical therapy and use of an intraoral appliance have significantly improved her symptoms. I discussed the 2 phase treatment plan to allow for joint stabilization before proceeding with occlusal rehabilitation. Ángela reports understanding. I discussed in the event of flare in jaw symptoms, I reinforced basic home self care and jaw exercises to manage it. I discussed to follow up in 6 months or sooner if needed. History today was obtained from the patient. The patient has 5+ diagnoses which we are addressing. Their symptoms are significantly improved. This case is moderate complexity because of multiple diagnoses with chronic symptoms. Data reviewed included previous imaging. Discussion with treatment team members before visit was necessary. Risk of complications include disease/symptom progression were discussed. Today time spent may have included a review of past records, history taking, review of diagnoses, contributing factors, treatment plan, diagnostic testing, prognosis, expectations, risks and complications of treatment/no treatment, discussions with other providers and completing documentation was 40 minutes. I suggested that (s)he return for follow-up care in 6-9 months. Not available 02/10/2023 13:22:16 02/10/2023 02/10/2023 Progress Note performed today to update and measure objective findings, modify goals as noted and modify POC frequency and duration. POC was modified today. Discussion of progress and new plan with patient with patient agreement. Patient is progressing with improvement. Occlusion is improved on the L side and eating is much easier. Due to this I will discharge Ángela's current PT POC with all goals considered met and she was advised to return in the future if needed. She does not plan to go through with restorative dental work right now as the bite has improved enough she can resume eating most anything. Patient was educated about discharge with all final questions and concerns addressed. HEP was reviewed with instructions to continue mobility and strengthening to help manage pain and prevent re-injury and maintain progress. [email or web address] Not available 02/10/2023 16:37:45 09/01/2023 09/01/2023 Today I reviewed the diagnosis, contributing factors and treatment options. I reviewed and reinforced continued use of self care and home exercises. I encouraged daily home care use which may consist of heat and ice compresses, oral habit reduction and relaxation techniques. The intraoral appliance was adjusted to patient comfort. I recommended regular use of the appliance. Ángela continues to improve with rehabilitative treatment. With improvement in occlusion, we mutually agreed to defer occlusal rehabilitation at this time. I reinforced continued home self care and home exercises as outlined by physical therapy. We discussed flare-up management and expectations. I encouraged her to continue oral appliance use nightly. I suggested we start long-term follow and that she return in 6-12 months. History today was obtained from the patient. The patient has 5+ diagnoses which we are addressing. Their symptoms are significantly improved. This case is moderate complexity because of multiple diagnoses with chronic symptoms. Risk of complications include disease/symptom progression were discussed. Today time spent may have included a review of past records, history taking, review of diagnoses, contributing factors, treatment plan, diagnostic testing, prognosis, expectations, risks and complications of treatment/no treatment, discussions with other providers and completing documentation was 35 minutes. I suggested that (s)he return for follow-up care in annually or PRN sooner. Not available 09/02/2023 13:58:51 Plan of Treatment Reminders Order Date Submit Date Provider Last Modified By Organization Details Last Modified Time Details Appointments None record ed. Lab None record ed. Referral None record ed. Procedures None record ed. Surgeries None record ed. Imaging None record ed. Medication Orders None record ed. 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 02/10=8. Goal met.*Patient will demonstrate the ability to open jaw to 40mm IO without compensations, noticeable difficulty or pain greater than 2/10 to be allow for adequate jaw function for chewing food of all types and consistencies without compensation or difficulty. 02/10=goal met. [email or web address] Not available 02/10/2023 16:37:57 Patient Instructions Encounter Date Encounter Id Patient Instructions Last Modified By Organization Details Last Modified Time 12/01/2022 [id number] Total treatment time minutes today =25 Next Visit Plan: L occlusion? Patient/Therapist Goals: improve bite Progress Note Date: 01/13. /10. Medicare POC sent: signed 7.20. [email or web address] Not available 12/01/2022 13:11:15 02/10/2023 [id number] Total treatment time minutes today =45 Medicare POC sent: 10.11 pending sign. [email or web address] Not available 02/10/2023 16:38:06 Reason for Referral Physical Therapist Referral for Bilateral temporomandibular joint pain Referring Physician: Charles Briones, Pain Management, Encounter Date: 10/26/2022 Results Created Date Observation Date Name Description Value Unit Range Abnormal Flag Note LastModifiedBy Organization Detail LastModifiedTime 12/18/[address], tempo ral bone, w/o contr ast No observ ation record ed. Not Available 12/17 09:09:36 Result Notes None recorded. 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 Possible DJD of right TMJ HELEN HENRY, BDS,MS [address] [facility] [address], [place], [address], [facility] 3 16:15:52 Myofascia l pain 509016875 Active 2022 [place] WIL BUTLERS,MS [address], [place], [address], [facility] 3 16:15:58 Bilateral temporoma ndibular joint pain 865464504515 Active 2022 Charles Briones DDS, MS [address], [place], [address], [facility] 3 17:56:21 Sleep related bruxism 288857131 Active 2022 WIL BUTLERS,MS [address], [place], [address], [facility] 3 16:16:14 Left posterior open bite 709463119 Active 2022 WIL BUTLERS,MS [address], [place], [address], [facility] 3 16:16:34 Bilateral temporoma ndibular joint arthritis 143688977421 Active 2022 WIL BUTLERS,MS [address], [place], [address], [facility] 3 10:58:08 Problem Notes None recorded. Procedures Surgical History Date Name Laterality Status Provider Name and Address Organization Details Recorded Time 3 65751: Self Care/Home Management Training completed Nae Aguiar DPT [address], [place], [address], [facility] 02/10/2023 16:39:05 3 82491: Therapeutic Exercise completed Nae Aguiar DPT [address], [place], [address], [facility] 02/10/2023 16:36:21 3 84293: Manual Therapy completed Nae Aguiar, DPT [address], [place], [address], [place] [facility] 02/10/2023 16:36:34 3 18407: Therapeutic Exercise completed Nae Aguiar, DPT [address], [place], [address], [facility] 12/01/2022 13:11:46 3 28291: Manual Therapy completed Nae Aguiar, DPT [address], [place], [address], [facility] 12/01/2022 13:11:44 3 Oral appliance completed Bethelgabrielle Kelley [facility] 11/18/2022 15:12:41 3 10639 - PT Eval Moderate Complexity completed Nae Aguiar, DPT [address], [place], [address], [facility] 11/18/2022 08:28:03 3 61930: Therapeutic Exercise completed Nae Aguiar DPT [address], [place], [address], [facility] 11/18/2022 14:55:08 3 99744: Manual Therapy completed Nae Aguiar, DPT [address], [place], [address], [facility] 11/18/2022 14:54:32 2 Joint Replacement completed Bethel Kelley [facility] 10/26/2022 14:07:23 Irving Teeth Extraction completed Bethel Kelley [facility] 10/26/2022 14:07:23 Imaging Results Imaging Date Name Status [facility] Details LastModified Time 12/17/2022 CT, temporal bone, w/o contrast completed Information not available 12/17/2022 09:09:36 Procedure Notes None recorded. Medical Equipment None Reported. Allergies Allergen ID Allergen Name Allergen Category Reaction Reaction Severity Criticality Documentation Date Start Date Code Code System Note Provider Name and Address Organization Details Recorded Time 09610 tetracycl ine medicatio n hives mild Not available 10/26/2022 25442 RxNorm Bethel connors [facility] 3 14:06:56 05388 house dust allergeni c extract environme nt,medica tion eye redness moderate Not available 10/26/2022 76621 9 RxNorm Bethel connors [facility] 3 14:06:56 10009 minocycli ne medicatio n hives mild Not available 10/26/2022 6980 RxNorm Bethel connors [facility] 3 14:06:56 28113 cat dander environme nt eye redness tachycard ia wheezing severe moderate severe Not available 10/26/2022 Bethel connors [facility] 3 14:06:56 Medications Name Sig Start Date Stop Date Status Note LastModified by Organization Details LastModified Time amoxicillin 500 mg capsule Take 4 tablets (2000 mg) by mouth one hour before dental appointme nt or non-steri le procedure s.* active Not Available Not Available No t Available hydrocodone 5 mg-acetamin ophen 325 mg tablet TAKE ONE TABLET BY MOUTH EVERY SIX HOURS NEEDED FOR SEVERE PAIN 10/26 completed Not Available Not Available Not Available neomycin 3.5 mg/g-polymy dung B 10,000 unit/g-dexa meth 0.1 % eye oint APPLY 1/4 RIBBON TWICE DAILY RIGHT LOWER EYELID 11/07 completed Not Available Not Available Not Available GaviLyte-G 236 gram-22.74 gram-6.74 gram-5.86 gram oral solution Drink 2 liters the day before colonosco py and 2 liters 6 hours before colonosco py appointme nt* 10/26 completed Not Available Not Available Not Available Flowflex COVID-19 Antigen Home Test kit use as directed* 10/26 completed Not Available Not Available Not Available Paxlovid 300 mg (150 mg x 2)-100 mg tablets in a dose pack take TWO 150 mg tablets of nirmatrel vir with ONE 100 mg tablet of ritonavir twice daily for 5 days 10/26 completed Not Available Not Available Not Available Vitals Date Recorded Body height Heart rate Systolic blood pressure Diastolic blood pressure Provider Name and Address Organization Details Last Updated DateTime 02/10/2023 162.56 cm 65 /min 125 mm[Hg] 81 mm[Hg] Danna Springer [facility] 02/10/2023 12:02:30 Date Recorded Body height Body mass index (BMI) Body weight Heart rate Systolic blood pressure Diastolic blood pressure Provider Name and Address Organization Details Last Updated DateTime 4 161.29 cm 26.2 kg/m2 75097.8 6 g 67 /min 119 mm[Hg] 81 mm[Hg] Mery Mackenzie [facility] 4 14:15:02 Date Recorded Body height Heart rate Systolic blood pressure Diastolic blood pressure Provider Name and Address Organization Details Last Updated DateTime 12/16/2022 162.56 cm 68 /min 128 mm[Hg] 83 mm[Hg] Bethel Kelley [facility] 12/16/2022 11:39:57 Social History Question Answer Notes LastModified by Organizat ion Details LastModified Time Tobacco Smoking Status Never Smoker Bethel connors [facility] 10/26/2022 14:07:18 What Is Your Level Of Alcohol Consumption? None Information not available 10/26/2022 What Is Your Level Of Caffeine Consumption? None Information not available 10/26/2022 Are You Currently Employed? No Information not available 10/26/2022 What Type Of Diet Are You Following? REGULAR Information not available 10/26/2022 Do You Reside In Or Have You Traveled To An Area Where Ebola Virus Transmission Is Active? No Information not available 10/26/2022 What Is The Highest Grade Or Level Of School You Have Completed Or The Highest Degree You Have Received? 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 (0=no Pain, 10=pain As Bad As You Can Imagine) 0 Information not available 10/26/2022 What Number Best Describes How, During The Past Week, Pain Has Interfered With Your Enjoyment Of Life? (0=does Not Interfere, 10= Completely Interferes) 0 Information not available 10/26/2022 What Number Best Describes How, During The Past Week, Pain Has Interfered With Your General Activity? (0=does Not Interfere, 10=completely Interferes) 0 Information not available 10/26/2022 How Did Primary Problem Begin? Noticed Jaw Clicking At Age 14 Information not available 10/26/2022 How Many Children Do You Have? 0 Information not available 10/26/2022 What Is Your Relationship Status? Domestic Partner Information not available 10/26/2022 Do You Feel Stressed (tense, Restless, Nervous, Or Anxious, Or Unable To Sleep At Night)? [id number] Information not available 10/26/2022 Do You Use Any Illicit Or Recreational Drugs? No Information not available 10/26/2022 How Many Years Have You Smoked Tobacco? 0 Information not available 10/26/2022 Sex: Unknown Functional Status Question Answer Note LastModified by Organization D etails LastModified Time What is your exercise level? Moderate Information not available 10/26/2022 Mental Status None recorded. Family History Relationship Description Onset Age of this Age Resolved Age Notes LastModified by Organization Details LastModified Time Mother Headache Not availab le 10/26/2022 14:07:01 Mother Depressive disorder Not available 10/26 14:07:01 Mother Arthritis 60 Not availa ble 10/26/2022 14:07:01 Mother Hypertensive disorder 60 Not available 10/26 14:07:01 Mother Heart disease 85 Not available 10/26 14:07:01 Brother Depressive disorder Not available 10/26 14:07:01 Brother Arthritis 50 Not avail able 10/26/2022 14:07:01 Brother Hypertensive disorder Not available 10/26 14:07:01 Sister Depressive disorder Not available 10/26 14:07:01 Sister Arthritis 60 Not availa ble 10/26/2022 14:07:01 Sister Hypertensive disorder Not available 10/26 14:07:01 Father Migraine Not availab le 10/26/2022 14:07:02 Father Heart disease 50 Not available 10/26 14:07:02 Medical History Condition Response Muscle, Joint, or Bone Problems Y Arthritis Y Acid Reflux (GERD) Y Back Injury Y Vertigo Y Headaches Y Gynecological HistoryNo gynecological history recorded. Obstetrics History GPAL:G 0 P 0 0 0 0 Immunizations Vaccine Type Date Status Provider Name and Address Organization Details Recorded Time SARS-COV-2 (COVID-19) vaccine, UNSPECIFIED 08/01/2021 completed Bethel connors [facility] 10/26/2022 14:07:27 SARS-COV-2 (COVID-19) vaccine, UNSPECIFIED 08/06/2020 completed Bethel connors [facility] 10/26/2022 14:07:27 SARS-COV-2 (COVID-19) vaccine, UNSPECIFIED 08/27/2020 completed Bethel connors [facility] 10/26/2022 14:07:27 SARS-COV-2 (COVID-19) vaccine, UNSPECIFIED 01/07/2022 completed Bethel connors [facility] 10/26/2022 14:07:27 pneumococcal, unspecified formulation 01/20/2021 completed Bethel connors, [facility] 10/26/2022 14:07:27 Influenza, split virus, trivalent, preservative 02/19/2022 completed Bethel connors, [facility] 10/26/2022 14:07:27 SARS-COV-2 (COVID-19) vaccine, UNSPECIFIED 08/02/2023 completed Mery connors, [facility] 09/01/2023 14:15:51 influenza, unspecified formulation 01/01/2023 completed Mery connors, [facility] 09/01/2023 14:16:02 Respiratory syncytial virus (RSV), unspecified 01/31/2023 completed Mery connors, [facility] 09/01/2023 14:16:30 tetanus toxoid, unspecified formulation 01/01/2023 completed Mery connors, [facility] 09/01/2023 14:17:01 Past Encounters Encounter ID Performer Location Encounter Start Date Encounter Closed Date Diagnosis/Indication Diagnosis SNOMED-CT Code Diagnosis ICD10 Code [id number] Charles Briones DDS, [place] [address] [place] [id number] 10/26/2022 13:46:49 10/26/2022 15:42:43 Temporomandibular joint disorder 57477655 M26.632 Articular disc disorder of temporomandibular joint 49752513 M26.639 Myofascial pain 63583149 9 M79.11 Bilateral temporomandibular joint pain 1369735726 6560128 M26.623 Screening for disorder 800837788 Z13.9 [id number] DM Rodriguez [address] [place] [id number] 11/18/2022 13:50:27 11/18/2022 14:44:33 Articular disc disorder of temporomandibular joint 85917994 M26.639 Bilateral temporomandibular joint pain 6865870118 7845295 M26.623 Myofascial pain 55696251 9 M79.11 Temporoman dibular joint disorder 66278470 M26.632 [id number] HELEN VARUN, BDS,[place] [address] [place] [address] 11/18/2022 13:51:04 11/18/2022 15:54:26 Bilateral temporomandibular joint pain 6732376062 7474277 M26.623 Myofascial pain 35194270 9 M79.11 Articular disc disorder of temporomandibular joint 83077650 M26.631 Sleep related bruxism 27 8088193 G47.63 Left poste rior open bite 722120623 M26.221 [id number] Nae Aguiar, DPT [place] [address] [place] [address] 12/01/2022 12:34:52 12/01/2022 13:12:41 Articular disc disorder of temporomandibular joint 10804377 M26.631 Bilateral temporomandibular joint pain 1658749319 0800266 M26.623 Left poste rior open bite 087782809 M26.221 Myofascial pain 10915523 9 M79.11 Sleep related bruxism 27 0476282 G47.63 [id number] HELEN CARL, BDS,MS [place] [address] [place] [address] 12/16/2022 11:20:12 12/16/2022 12:17:49 Bilateral temporomandibular joint pain 4354078480 0537300 M26.623 Myofascial pain 94210059 9 M79.11 Articular disc disorder of temporomandibular joint 06467350 M26.631 Left poste rior open bite 290503379 M26.221 Sleep related bruxism 27 0739732 G47.63 Bilateral temporomandibular joint arthritis 4240585937 4512518 M26.643 [id number] HELEN CARL, BDS,[place] [address] [place] [id number] 02/10/2023 11:14:02 02/10/2023 12:31:38 Bilateral temporomandibular joint pain 9065330434 1475152 M26.623 Bilateral temporomandibular joint arthritis 2847530445 9712396 M26.643 Sleep related bruxism 27 7280376 G47.63 Myofascial pain 83242124 9 M79.11 Left poste rior open bite 326758824 M26.221 [id number] Nae Cosme, DPT [place] [address] [place] [id number] 02/10/2023 11:12:47 02/10/2023 12:00:54 Articular disc disorder of temporomandibular joint 16448021 M26.631 Bilateral temporomandibular joint arthritis 4394647884 2482500 M26.643 Bilateral temporomandibular joint pain 9025809290 8120591 M26.623 Left poste rior open bite 144375570 M26.221 Myofascial pain 39393251 9 M79.11 Sleep related bruxism 27 3171318 G47.63 [id number] HELEN WIL HENRYS,MS [place] [address] [place] [address] 09/01/2023 13:57:19 09/01/2023 15:18:13 Articular disc disorder of temporomandibular joint 08749641 M26.631 Bilateral temporomandibular joint pain 9911019139 4754812 M26.623 Bilateral temporomandibular joint arthritis 9175998601 4844302 M26.643 Myofascial pain 28719302 9 M79.11 Sleep related bruxism 27 4666423 G47.63 Health Concerns Section Related Observation LastModified by Organization Detai ls LastModified Time None Recorded Concern Status LastModified by Organization Details LastModified Time None Recorded Advance Directives Directive None Recorded Payers Encounter Date Sequence Insurance Name Policy Number Policy French Covered Member ID French Member ID Guarantor Name 12/01/2022 1 [facility] [id number] Ángela Jerry Louie [id number] Ángela Jerry Louie 12/01/2022 1 [place] [employer] Ángela Palma [id number] Ángela Claritza Louie 12/16/2022 1 [facility] [id number] Ánglea Claritza Louie [id number] Ángela Claritza Louie 12/16/2022 1 [place] [employer] Ángela Palma [id number] Ángela Claritza Louie 02/10/2023 1 [facility] [id number] Ángela Claritza Louie [id number] Ángelaoneil Palma 02/10/2023 1 [place] [employer] Ángela Claritza Louie [id number] Ángela Claritza Louie 02/10/2023 1 [facility] [id number] Ángela Claritza Louie [id number] Ángela Claritza Louie 02/10/2023 1 [place] [employer] Ángela Claritza Louie [id number] Ángela Jerry Louie 09/01/2023 1 [facility]: (MEDICARE REPLACEMENT PPO) [id number] Ángela Palma [id number] Ángela Palma Notes Date Note Type Note Provider Name and Address Organization Details Recorded Time 12/01/2022 text/html HPI Notes: Pt reports wearing her splint and it is going well. Was able to eat a sandwich today but still unable to touch L teeth. Nae Aguiar, DPT [address] [facility] [address], [place], [address], [facility] 12/01/2022 13:12:31 12/16/2022 text/html HPI Notes: Jaw p ain Reported by patient. Onset: started 20 year(s) ago Location: bilateral; preauricular; mandibular angle/submandibular ; ear Quality: dull; aching; sore Severity: pain level 6/10; radiating to ear Duration and frequency fluctuating Context: clenching; bruxism; chews hard/crunchy/chewy foods Aggravating/contrib ution factors: grinding teeth; clenching the teeth; chewing; crunchy foods Alleviating Factors: splint therapy Associated Symptoms: jaw clicking bilateral; headaches Prior Tests: panorex Prior Treatment: nightguard Prior opinion dentist Patient presents today for follow-up. They report jaw symptoms which are improved since the previous visit. Symptoms and pertinent information along with prior data was reviewed, updated and documented in the patient history of present illness. Patient rates the pain intensity as 0 on a scale of 0 to 10. Patient is engaged in active treatment at this time. Ángela presents for first follow up after splint delivery. She has been using the intraoral appliance regularly and finds that it gives her stability at night. She finds that with the bite changes being constantly bothersome during the day. Bite - Ángela reports that physical therapy exercises have improved the bite some. SHe feels that more of her teeth come together and gap between the teeth in left posterior region is closing. She continues to be regular with home exercises. Jaw pain - significantly improved with home self care and physical therapy exercises. PT - she wonders if she needs more appointments since her symptoms are optimised. Today we are reviewing her CT report from [facility]. HELEN HENRY BDS,MS [address] [facility] [address], [place], [address], [facility] 12/18/2022 10:59:16 02/10/2023 text/html HPI Notes: Pt reports the retrusion stretch and her splint are working well to help align her bite much better. Patient Reported Outcome JFLS-8 (out of 80): 11/18=17. 02/10=8 Nae Aguiar DPT [address] [facility] [address], [place], [address], [facility] 03/22/2023 11:36:04 02/10/2023 text/html HPI Notes: Jaw p ain Reported by patient. Onset: started 20 year(s) ago Location: bilateral; preauricular; mandibular angle/submandibular ; ear Quality: dull; aching; sore Severity: pain level 6/10; radiating to ear Duration and frequency fluctuating Context: clenching; bruxism; chews hard/crunchy/chewy foods Aggravating/contrib ution factors: grinding teeth; clenching the teeth; chewing; crunchy foods Alleviating Factors: splint therapy Associated Symptoms: jaw clicking bilateral; headaches Prior Tests: panorex Prior Treatment: nightguard Prior opinion dentist Patient presents today for follow-up. They report jaw symptoms which are improved since the previous visit. Symptoms and pertinent information along with prior data was reviewed, updated and documented in the patient history of present illness. Patient rates the pain intensity as 0 on a scale of 0 to 10. Patient is engaged in active treatment at this time. Ángela presents for a 2 month follow up, she also had a PT session today, she stated Nae also worked on her neck today. She is wearing her splint every night. She feels like her bite is resolving and she is able to chew on both sides again. Ángela does not experience jaw pain at the present time. Her primary concerns is the left posterior open bite. She reports that she has been using the intraoral appliance regularly, jaw exercises and finds that her occlusion has improved about 50% since initial visit. She reports that she can bring more left posterior teeth to touch. She reports improvement in ability to chew food. Ángela reports that her symptoms have favorably improved since starting treatment. HELEN HENRY BDS,MS [address], [address], [facility] 02/10/2023 13:23:08 09/01/2023 text/html HPI Notes: Jaw p ain Reported by patient. Onset: started 20 year(s) ago Location: bilateral; preauricular; mandibular angle/submandibular Quality: sore Severity: pain level 0-1/10 Duration and frequency intermittent Context: clenching; bruxism; chews hard/crunchy/chewy foods Aggravating/contrib ution factors: grinding teeth; clenching the teeth; chewing; crunchy foods Alleviating Factors: massage; splint therapy; exercise; physical therapy Associated Symptoms: no headaches; jaw clicking bilateral; Jaw joint noises will occur with yawning. Prior Tests: panorex Prior Treatment: nightguard Prior opinion dentist Patient presents today for follow-up. They report jaw symptoms which are improved since the previous visit. Symptoms and pertinent information along with prior data was reviewed, updated and documented in the patient history of present illness. Patient rates the pain intensity as 0 on a scale of 0 to 10. Patient is engaged in active treatment at this time. Ángela is present for a 6 month follow up appointment with her TMJ splint. She states she is doing well and denies any flare up.Her bite changes have improved and she is contacting more on her right side then left side. When the patient chews food on her left side then her right side will skitter. She is now trying to chew evenly. Her headaches have improved with her neck pain improvement. She was discharged from physical therapy with Nae. The patient continues to do self care and PT exercises. Ángela denies changes in health or medications. HELEN HENRY BDS,MS [address] [facility] [address], [place], [address], [facility] 09/02/2023 13:59:16 OBGyn Episode No OBEpisode recorded.
--- OUTSIDE RECORDS SUMMARY | 2024-02-25 12:59 | XMS_ITS | Clinical Summary ---
Author Organization [facility] Address [place], [place] [address] Care Team Providers Care Rib Cloth Knitter Name Role Phone Janelle Dewitt MD Primary Care Provider [phone] Allergies Active Allergy Reactions Criticality Noted Date Comments Minocycline Hives 11/08/2001 Tetracycline Hives 11/08/2001 Medications No known medications Active Problems Problem Noted Date Diagnosed Date Family history of colonic polyps 09/15/2022 Overview (09/15/2022): Colonoscopy 08/2022 hyperplastic polyps, repeat in 5 [...] 69.9 kg (154 lb) 05/19/2022 1:17 PM AUTOMATION SPECIALIST Height - - Body Mass Index - [...] PCV) 10/05/2020 COVID-19 vaccine series (2 - ) 01/02/2024 01/07/2022 Influenza for age 65+ 01/02/2024 Colonoscopy [...] Colonoscopy Proceduralist: Orlando Gates MD , Valerie Lopez, RN(Nurse), Sanna Soliz (Nurse) Indications/Pre-Op Diagnosis: Colon [...] candidate for conscious sedation. The endoscope [id number]-[id number] was passed through the anus andadvanced to [...] 10:19 AM Procedure Code(s): --- Professional --- 32876, Colonoscopy, flexible; with biopsy, single or multiple G0500, Moderate sedation services providedby the same physician or other qualified health long term care phlebotomist performing agastrointestinal endoscopic service that sedation supports, requiring the presence of an independent trained observer to assist in the monitoringof the patient's level of consciousness and physiological status; initial 15 minutes of intra-service time; patient age 5 years or older (additional time may be reported with 31005, as appropriate) Diagnosis Code(s): --- Professional --- Z83.71, Family history of colonic polyps D12.8, Benign neoplasm of rectum CPT copyright 2021 [employer]. All rights reserved. The codes documented in this report are preliminary and upon horse racer reviewmay be revised to meet current compliance requirements. Scope In: 11:05:48 AM Scope Withdrawal Time 0 hours 8 minutes 11 seconds Scope Out: 11:19:38 AM Orlando Gates MD PROCEDURE ORD from Last 3 Months or Most Recently Relevant to Health Maintenance Care Teams Rib Cloth Knitter Relationship Specialty Start Date End Date Janelle Dewitt MD [address] [place] [address] PCP - General Internal Medicine 06/09/22
--- OUTSIDE RECORDS SUMMARY | 2024-02-25 12:59 | XMS_ITS | Encounter Summary ---
Author Organization [facility] Address [address] [place] [address] Care Team Providers Care Solar Sales Name Role Phone Kyle Garza MD Unavailable Janelle Dewitt MD Primary Care Provider [phone] Vance Holliday MD Unavailable [phone] Encounter Details Date Type Department Care Team (Latest Contact Info) Description 02/24/2024 12:50 PM CDT Therapy Visit [facility] [address] [facility] [address] [place] [phone] Vance Holliday MD [address] [place], [place] [phone] Tomi Campa, PT [address] [facility] [address] [place] [address] Chronic pain of left knee (Primary Dx) Social History Tobacco Use Types Packs/Day Years [...] AM CDT 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 Gender Identity Female 01/09/2021 11:55 AM CDT Sexual Orientation Not on file documented as of this encounter Plan of Treatment Upcoming Encounters Date Type Department Care Team (Late st Contact Info) Description 03/02/2024 10:20 AM CDT Therapy Visit [facility] [address] [facility] [address] [place] [phone] Vance Holliday MD [address] [place] [phone] Tomi Campa, PT [address] [facility] [address] [place] [address] documented as of this encounter Visit Diagnoses Diagnosis Chronic pain of left knee- Primary Pain in joint, lower leg documented in this encounter Care Teams Solar Sales Relationship Specialty Start Date End Date Janelle Dewitt MD [facility] [address] [place] [address] PCP - General Internal Medicine 01/14/21 Kyle Garza MD Family Medicine - Sports Medicine 12/24/14 Vance Holliday MD [address] [place] [address] Assigned Musculoskeletal Provider 02/23/24 documented as of this encounter
--- OUTSIDE RECORDS SUMMARY | 2024-02-25 12:59 | XMS_ITS | Referral Summary ---
Author Organization [facility] Address [address] [place] [address] Care Team Providers Care Molding Room Supervisor Name Role Phone Kyle Garza MD Unavailable Janelle Dewitt MD Primary Care Provider Vance Holliday MD Unavailable Encounters Date Type Department Care Team Description 02/24/2024 Travel 02/24/2024 12:50 PM CDT Therapy Visit [address] [phone] Vance Holliday MD Stout, Grayson T, PT Chronic pain of left knee (Primary Dx) 02/18/2024 Travel 02/18/2024 10:20 AM CDT Therapy Visit [address] [place] [address] Vance Holliday MD Stout, Grayson T, PT Chronic pain of left knee 02/15/2024 Travel 01/28/2024 2:20 PM CDT Ancillary Procedure [facility] [address] [place] [address] Vance Holliday MD Left knee pain 01/28/2024 Travel 01/28/2024 2:00 PM CDT Office Visit [facility] [place] [address] [facility] [address] [place] [phone] Vance Holliday MD Chronic pain of left knee (Primary Dx); S/P left unicompartmental knee replacement 01/23/2024 Travel from Last 3 Months Allergies Active Allergy Reactions Criticality Noted Date Comments Cats Difficulty breathing 11/08/2001 Dust Mite Extract 01/14/2021 Minocycline Hives 11/08/2001 Tetracycline Hives 11/08/2001 Medications calcium carbonate (OS-CASPER 500 MG SAMISH. 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 Gender Identity Female 01/09/2021 11:55 AM CDT [...] Description 03/02/2024 10:20 AM CDT Therapy Visit [facility] [address] [facility] [address] [place] [address] Vance Holliday MD [address] [place] [address] Tomi Campa T, PT [address] [facility] [address] [place] [address] Medical Devices Implanted Type Area Industrial Safety And Health Technician Device Identifier Shelf Expiration Date Model / Serial / Lot Bone Cement Simplex W/Tobramycin 6197-9-001 - [id number] Implanted:Qty: 1 on 10/09/2021 by Phuong Baugh MD at [facility] Cement, Bone Right: Knee [employer] 01/30/2023 6197-9-00 1 / / [id number] Imp Insert Baseplate Tibial Howm Tri 3 5521-B-300 - [id number] Implanted:Qty: 1 on 10/09/2021 by Phuong Baugh MD at [facility] Total Joint Component /Insert Right: Knee [employer] [id number] 04/03/2026 5521-B-30 0 / / [id number] Imp Comp Fem Strk Triathln Cr Rt 2 5510-F-202 - [id number] Implanted:Qty: 1 on 10/09/2021 by Phuong Baugh MD at [facility] Total Joint Component /Insert Right: Knee [employer] [id number] 03/27/2026 5510-F-20 2 / / [id number] Imp Comp Patella Strk Tri Sym X3 29x8mm 5550-G-298 - [id number] Implanted:Qty: 1 on 10/09/2021 by Phuong Baugh MD at [facility] Total Joint Component /Insert Right: Knee [employer] [id number] 02/06/2023 5550-G-29 8 / / [id number] Triathlon Tibial Bearing Insert-Cs Implanted:Qty: 1 on 10/09/2021 by Phuong Baugh MD at [facility] Right: Knee [employer] [id number] 03/24/2025 5531-G-31 0-E / / [id number] Explanted Type Area Industrial Safety And Health Technician Device Identifier Shelf Expiration Date Model / Serial / Lot Uni Knee Components Explanted Explanted:Qty: 3 on 10/09/2021 by Phuong Baugh MD at [facility] Right: Knee Procedures Procedure Name Priority Date/Time Associated Diagnosis Comments XR KNEE STANDING AP [place] BILAT LAT LEFT Routine 01/28/2024 2:32 PM CDT Left knee pain GLUCOSE Routine 10/10/2021 6:47 AM CDT LIPID REFLEX TO DIRECT LDL PANEL Routine 04/12/2018 9:50 AM SHEEPSKIN PICKLER CARDIOVASCULAR SCREENING; LDL GOAL LESS THAN 130 MA SCREENING BILATERAL W/ SAAD Routine 01/28/2018 1:46 PM CDT Encounter for screening mammogram for high-risk patient COLONOSCOPY - HIM SCAN 03/05/2017 12:00 AM CDT DX BONE DENSITY Routine 04/06/2016 2:23 PM SHEEPSKIN PICKLER Encounter for routine adult health examination without abnormal findings HEPATITIS C SCREEN REFLEX TO HCV RNA QUANT AND GENOTYPE Routine 03/09/2016 10:01 AM SHEEPSKIN PICKLER Encounter for routine adult health examination without abnormal findings PAP IMAGED THIN LAYER SCREEN Routine 01/30/2016 12:00 AM CDT Encounter for routine adult health examination without abnormal findings from Last 3 Months or Most Recently Relevant to Health Maintenance Results * XR Knee Standing AP [place] Bilat Lat Left (01/28/2024 2:32 PM CDT) [...] knee replacement. ROM PETERSON MD SYSTEM ID: ??[id number] Narrative 01/28/2024 3:51 PM CDT XR KNEE [...] knee replacement. ROM PETERSON MD SYSTEM ID: [id number] Vance Holliday MD IMG DIAGNOSTIC IMAGING ORDER [place] Final Result * (ABNORMAL) Glucose (10/10/2021 6:47 AM CDT) Glucose 109(H) 70 - 99 mg/dL 10/10/2021 7:46 AM CDT UR LAB[facility] Patient Fasting > 8hrs? Yes 10/10/2021 7:46 AM CDT UR LABORATORY Blood STRUCTURE OF RIGHT UPPER LIMB / Unknown Venipuncture / Unknown 10/10/2021 6:47 AM CDT 10/10/2021 7:22 AM CDT us Phuong Baugh MD LAB - BLOOD ORDERABLES Fin al Result UR LABORATORY [facility] [address] [facility] [place] [address], [facility] [phone] * (ABNORMAL) Lipid panel reflex to direct LDL Fasting (04/12/2018 9:50 AM SHEEPSKIN PICKLER) Cholesterol 207(H) <200 mg/dL 04/13/2018 11:[address] [facility] Comment:Desirable: <200 mg/d l Triglycerides 133 <150 mg/dL 04/13/2018 11:[address] [facility] Comment:Fasting specimen HDL Cholesterol 47(L) >49 mg/dL 8 11:[address] [facility] LDL Cholesterol Calculated 133(H) <100 mg/dL 04/13/2018 11:[address] [facility] Comment: Above desirable: ??100-129 mg/dl Borderline High: ??130-159 mg/dL High: ? 160-189 mg/dL Very high: ? >189 mg/dl Non HDL Cholesterol 160(H) <130 mg/dL 04/13/2018 11:[address] [facility] Comment: Above Desirable: ??130-159 mg/dl Borderline high: ??160-189 mg/dl High: ? 190-219 mg/dl Very high: ? >219 mg/dl Blood specimen (specimen) 04/12/2018 9:50 AM SHEEPSKIN PICKLER 04/12/2018 9:55 AM SHEEPSKIN PICKLER Elizabeth Bliss MD LAB - BLOOD ORDERABLES Final Res ult [facility] [address] [place] [address] * [place] Screen Bilateral w/Saad (01/28/2018 1:46 [...] Result * DX Hip/Pelvis/Spine (04/06/2016 2:23 PM SHEEPSKIN PICKLER) Anatomical Region Laterality Modality Dexa Computed Radiogr aphy Narrative 04/10/2016 8:13 AM SHEEPSKIN PICKLER BONE DENSITOMETRY [address] [address] 04/06/2016 PATIENT: Arsenio Palma CHART: [id number] ?? :?? 1955 AGE:?? 60 year old SEX:?? female REFERRING PROVIDER:??Elizabeth Bliss MD PROCEDURE:?? Bone density scanning was performed using DXA technology of the lumbar spine and hip.?? Scanning was performed on a Proteopure scanner.?? Reporting is completed in the form [...] to other DXAs performed on the same [employer]?? machine on 02/18/07 and 12/21/11. IMPRESSION Osteopenia., [...] RNA Quant and Genotype (03/09/2016 10:01 AM SHEEPSKIN PICKLER) Pathologist [facility] Hepatitis C Antibody Nonreactive Assay performance characteristics have not been established for newborns, infants, and children NR [facility] Blood specimen (specimen) 03/09/2016 10:01 AM SHEEPSKIN PICKLER 03/09/2016 10:06 AM SHEEPSKIN PICKLER us Elizabeth Bliss MD LAB - BLOOD ORDERABLES Final Res ult [facility] [address] * Pap imaged thin layer screen with HPV - recommended age 30 - 65 years (select HPV order below) (01/30/2016 12:00 AM CDT) JOSÉ MIGUEL Allen Report Patient Name: ARSENIO PALMA MR#: [id number] Specimen #: [id number] Collected: 01/30/2016 Received: 01/31/2016 Reported: 02/03/2016 12:11 [...] MINA Pena (ASCP) Processed and screened at [facility] CLINICAL HISTORY: LMP: 11/10/05 Previous normal pap Date of Last Pap: 01/09/13, Papanicolaou Test Limitations: ??Cervical cytology is a screening test with limited sensitivity; regular screening is critical for cancer prevention; Pap tests are primarily effective for the diagnosis/preventi on of squamous cell carcinoma, not adenocarcinomas or other cancers. TESTING LAB LOCATION: [address] ??[address] COLLECTION SITE: Client: ??[facility] Location: [place] (R) COPATH Cytologic material (specimen) 01/30/2016 01/31/2016 10:20 AM CDT Elizabeth Bliss MD LAB - OPTIME CLINICAL SPECIMEN F inal Result COPATH from Last 3 Months or Most Recently Relevant to Health Maintenance Insurance MEDICARE [facility] MEDICARE [facility] MEDIC[facility] Advance Directives For more information, please contact: [phone] Documents on File Type Date Recorded Patient Department Assistant Expl anation Advance Directives and Living Will [...] First Alternate Health Care Agent Care Teams Molding Room Supervisor Relationship Specialty Start Date End Date Janelle Dewitt MD [facility] [address] [place] [address] PCP - General Internal Medicine 01/14/21 Kyle Garza MD Family Medicine - Sports Medicine 12/24/14 Vance Holliday MD [address] [place] [address] Assigned Musculoskeletal Provider 02/23/24
--- NOTE | 2024-02-25 13:00 | CRLHL7_ITS ---
For Patients: As a result of the Century Cures Act, medical imaging exams and procedure reports are released immediately into your electronic medical record. You may view this report before your referring provider. If you have questions, please contact your health care provider. BILATERAL SCREENING MAMMOGRAM WITH COMPUTER-AIDED DETECTION AND TOMOSYNTHESIS TECHNIQUE: CC and MLO views were obtained. These mammographic images have been obtained using full-field digital technique. These mammographic images were interpreted with the benefit of computer-aided detection. Breast Tomosynthesis was used in this interpretation. COMPARISON FILM: 02/23/23, 02/17/22, 01/13/21. FINDINGS: The breasts are heterogeneously dense, which may obscure small masses. IMPRESSION: There is no radiographic evidence for malignancy. ASSESSMENT: BI-RADS Category 1: Negative RECOMMENDATION: Routine screening mammogram in 1 year. A lay language report of this examination will be provided to the patient. Dilshad Parker M.D. Diagnostic Radiologist [email or web address] SP/Dictated by: Dilshad Parker MD @ 02/28/2024 8:45:00 AM (Electronically Signed)
--- OUTSIDE RECORDS SUMMARY | 2024-02-25 13:00 | XMS_ITS | Encounter Summary ---
Author Organization [facility] Address [address] [place] [address] Care Team Providers Care Crosscutter Name Role Phone Kyle Garza MD Unavailable [phone] Janelle Dewitt MD Primary Care Provider Phuong Baugh MD Unavailable Marisol Fernandez PA-C Unavailable Phuong Baugh MD Unavailable [phone] Vance Holliday MD Unavailable Encounter Details Date Type Department Care Team (Late st Contact Info) Description 11/20/2021 [facility] Medical Advice [facility] [place] [id number] [facility] [address] [place] [address] Marisol Fernandez PA-C 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 Gender Identity Female 01/09/2021 11:55 AM CDT [...] Description 03/02/2024 10:20 AM CDT [facility] [address] [facility] [address] [place] [phone] Vance Holliday MD [address] [place] [address] Tomi Campa, PT [address] [facility] [address] [place] [address] documented as of this encounter Visit Diagnoses Not on filedocumented in this encounter Care Teams Crosscutter Relationship Specialty Start Date End Date Janelle Dewitt MD [facility] [address] [place] [address] PCP - General Internal Medicine 01/14/21 Kyle Garza MD Family Medicine - Sports Medicine 12/24/14 Phuong Baugh MD [address] [place] [address] Assigned Musculoskeletal Provider 01/19/21 11/21/21 Marisol Fernandez PA-C [address] [place] [address] Assigned Musculoskeletal Provider 11/22/21 12/12/21 Phuong Baugh MD [address] [place] [address] Assigned Musculoskeletal Provider 12/13/21 10/23/23 Vance Holliday MD [address] [place] [address] Assigned Musculoskeletal Provider 02/23/24 documented as of this encounter
--- OUTSIDE RECORDS SUMMARY | 2024-02-25 13:00 | XMS_ITS | Encounter Summary ---
Author Organization [place] Address [address] [place] [address] Care Team Providers Care Manager Of Supply Chain Name Role Phone Kyle Garza MD Unavailable [phone] Janelle Dewitt MD Primary Care Provider Phuong Baugh MD Unavailable [phone] Marisol Fernandez PA-C Unavailable [phone] Phuong Baugh MD Unavailable [phone] Vance Holliday MD Unavailable [phone] Encounter Details Date Type Department Care Team (Late st Contact Info) Description 07/24/2021 [facility] Medical Advice [facility] [address] [address] Phuong Baugh MD [address] [place] [address] Social History Tobacco Use Types Packs/Day Years Used Date Smoking Tobacco: Never Smokeless Tobacco: Never Alcohol Use Standard Drinks/Week Comments Yes 0 (1 standard drink = 0.6 oz pure alcohol) occas., 2 per month, before dinner PHQ-2 Answer Date Recorded PHQ-2 Score 0 01/14/2021 Comments No Sex and Gender Information Value Date Recorded Sex Assigned at Female 01/09/2021 11:55 AM CDT 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 Gender Identity Female 01/09/2021 11:55 AM CDT Sexual Orientation Not on file documented as of this encounter Plan of Treatment Upcoming Encounters Date Type Department Care Team (Late st Contact Info) Description 03/02/2024 10:20 AM CDT Therapy Visit [facility] [address] [facility] [address] [place] [address] Vance Holliday MD [address] [place], [place] [address] Tomi Campa, PT [address] [facility] [address] [place] [address] documented as of this encounter Visit Diagnoses Not on filedocumented in this encounter Care Teams Manager Of Supply Chain Relationship Specialty Start Date End Date Janelle Dewitt MD [facility] [address] [place] [address] PCP - General Internal Medicine 01/14/21 Kyle Garza MD Family Medicine - Sports Medicine 12/24/14 Phuong Baugh MD [address] [place] [address] Assigned Musculoskeletal Provider 01/19/21 11/21/21 Marisol Fernandez PA-C [address] [place] [address] Assigned Musculoskeletal Provider 11/22/21 12/12/21 Phuong Baugh MD [address]09 [place] [address] Assigned Musculoskeletal Provider 12/13/21 10/23/23 Vance Holliday MD [address] [place] [address] Assigned Musculoskeletal Provider 02/23/24 documented as of this encounter
--- OUTSIDE RECORDS SUMMARY | 2024-02-25 13:00 | XMS_ITS | Encounter Summary ---
Author Organization [place] Address [address] [place] [address] Care Team Providers Care Horse Identifier Name Role Phone Kyle Garza MD Unavailable Elizabeth Romeo MD Unavailable Janelle Dewitt MD Primary Care Provider Phuong Baugh MD Unavailable [phone] Chanelle Segura MD Unavailable [phone] Marisol Fernandez PA-C Unavailable Phuong Baugh MD Unavailable [phone] Vance Holliday MD Unavailable [phone] Encounter Details Date Type Department Care Team (Late st Contact Info) Description 03/10/2021 [facility] [place] [address] [address] Ginger Longo, BELLA DIAS [address] [place] [address] JEY SELF [id number] Social History Tobacco Use Types Packs/Day Years [...] AM CDT 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 Gender Identity Female 01/09/2021 11:55 AM CDT [...] 10:20 AM CDT Therapy Visit [facility] [address] [facility] [address] [place] [address] Vance Holliday MD [address] [place] [address] Tomi Campa T, PT [address] [facility] [address] [place] [address] documented as of this encounter Visit Diagnoses Not on filedocumented in this encounter Care Teams Horse Identifier Relationship Specialty Start Date End Date Janelle Dewitt MD [facility] [address] [place] [address] PCP - General Internal Medicine 01/14/21 Kyle Garza MD Family Medicine - Sports Medicine 12/24/14 Elizabeth Romeo MD [address] [facility] 200 [place] [address] Assigned PCP 07/23/19 04/12/21 Phuong Baugh MD [address] [place] [address] Assigned Musculoskeletal Provider 01/19/21 11/21/21 Chanelle Segura MD [address] [place] [address] Assigned PCP 04/13/21 07/19/21 Marisol Fernandez PA-C [address] [place] [address] Assigned Musculoskeletal Provider 11/22/21 12/12/21 Phuong Baugh MD [address] [place] [address] Assigned Musculoskeletal Provider 12/13/21 10/23/23 Vance Holliday MD [address] [place] [address] 909095 Assigned Musculoskeletal Provider 02/23/24 documented as of this encounter
--- OUTSIDE RECORDS SUMMARY | 2024-02-25 13:00 | XMS_ITS | Encounter Summary ---
Author Organization [place] Address [address] [place] [address] Care Team Providers Care Coiled Coil Inspector Name Role Phone Elizabeth Romeo MD Primary Care Provider Kyle Garza MD Unavailable Elizabeth Romeo MD Unavailable Elizabeth Romeo MD Unavailable Chanelle Segura MD Unavailable Elizabeth Romeo MD Unavailable Janelle Dewitt MD Primary Care Provider [phone] Phuong Baugh MD Unavailable [phone] Chanelle Segura MD Unavailable [phone] Marisol Fernandez PA-C Unavailable [phone] Phuong Baugh MD Unavailable [phone] Vance Holliday MD Unavailable [phone] Reason for Visit * Reason Onset Date Comments Outreach 11/18/2012 Preventative hea lth screening Encounter Details Date Type Department Care Team (Late st Contact Info) Description 11/18/[address] [place] [address] Elizabeth Romeo MD [address] [facility] 200 [place] [address] Outreach (Preventative health screening) Social History Tobacco Use Types Packs/Day Years Used Date Smoking Tobacco: Never Smokeless Tobacco: Never Alcohol Use Standard Drinks/Week Comments Yes 0 (1 standard drink = 0.6 oz pur e alcohol) occas. 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 Aly Lafleur documented in this encounter Plan of Treatment Upcoming Encounters Date Type Department Care Team (Late st Contact Info) Description 03/02/2024 10:20 AM CDT Therapy Visit [facility] [address] [facility] [address] [place] [address] Vance Holliday MD 9 [place], [place] [address] Tomi Campa T, PT [address] [facility] [address] [place] [address] documented as of this encounter Visit Diagnoses Not on filedocumented in this encounter Care Teams Coiled Coil Inspector Relationship Specialty Start Date End Date Elizabeth Romeo MD [address] [place] [address] PCP - General 08/10/02 01/13/21 Elizabeth Romeo MD [address] [place] [address] PCP - Assigned PCP 01/30/18 07/05/18 Janelle Dewitt MD [address] [address] PCP - General Internal Medicine 01/14/21 Kyle Garza MD [address] [place] [address] Family Medicine - Sports Medicine 12/24/14 Elizabeth Romeo MD [address] [place] [address] Assigned PCP 01/30/18 04/08/19 Chanelle Segura MD [address] [place] [address] Assigned PCP 04/09/19 07/22/19 Elizabeth Romeo MD [address] [place] [address] Assigned PCP 07/23/19 04/12/21 Phuong Baugh MD [address] [place] [address] 275095 Assigned Musculoskeletal Provider 01/19/21 11/21/21 Chanelle Segura MD [address] [place] [address] Assigned PCP 04/13/21 07/19/21 Marisol Fernandez PA-C [address] [place] [address] 993394 Assigned Musculoskeletal Provider 11/22/21 12/12/21 Phuong Baugh MD [address] [place] [address] 257555 Assigned Musculoskeletal Provider 12/13/21 10/23/23 Vance Holliday MD [address] [place] [address] [id number] Assigned Musculoskeletal Provider 02/23/24 documented as of this encounter
--- OUTSIDE RECORDS SUMMARY | 2024-02-25 13:00 | XMS_ITS | Encounter Summary ---
Author Organization [facility] Address [address] [place] [address] Care Team Providers Care Care Trainer Name Role Phone Kyle Garza MD Unavailable Janelle Dewitt MD Primary Care Provider Phuong Baugh MD Unavailable [phone] Marisol Fernandez PA-C Unavailable [phone] Phuong Baugh MD Unavailable [phone] Vance Holliday MD Unavailable [phone] Encounter Details Date Type Department Care Team (Late st Contact Info) Description 09/03/2021 [facility] Medical Advice [facility] [address] [address] Phuong Baugh MD [address] [place] [address] Social History Tobacco Use Types Packs/Day [...] AM CDT 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 Gender Identity Female 01/09/2021 11:55 AM CDT Sexual Orientation Not on file documented as of this encounter Plan of Treatment Upcoming Encounters Date Type Department Care Team (Late st Contact Info) Description 03/02/2024 10:20 AM CDT [facility] [address] [facility] [address] [place] [address] Vance Holliday MD [address] [place], [place] [address] Tomi Campa, PT [address] [facility] [address] [place] [address] documented as of this encounter Visit Diagnoses Not on filedocumented in this encounter Care Teams Care Trainer Relationship Specialty Start Date End Date Janelle Dewitt MD [facility] [address] [place] [address] PCP - General Internal Medicine 01/14/21 Kyle Garza MD Family Medicine - Sports Medicine 12/24/14 Phuong Baugh MD [address] [place] [address] Assigned Musculoskeletal Provider 01/19/21 11/21/21 Marisol Fernandez PA-C [address] [place] [address] Assigned Musculoskeletal Provider 11/22/21 12/12/21 Phuong Baugh MD [address]09 [place] [address] Assigned Musculoskeletal Provider 12/13/21 10/23/23 Vance Holliday MD [address] [place] [address] Assigned Musculoskeletal Provider 02/23/24 documented as of this encounter
--- OUTSIDE RECORDS SUMMARY | 2024-02-25 13:00 | XMS_ITS | Encounter Summary ---
Author Organization [place] Address [address] [place] [address] Care Team Providers Care Sketch Artist Name Role Phone Kyle Garza MD Unavailable Janelle Dewitt MD Primary Care Provider Phuong Baugh MD Unavailable [phone] Vance Holliday MD Unavailable Encounter Details Date Type Department Care Team (Late st Contact Info) Description 09/20/2023 [facility] Medical Advice [facility] [address] 4th [place] [address] Mala Mckeon, RN Social History Tobacco Use Types Packs/Day Years Used Date Smoking Tobacco: Never Smokeless Tobacco: Never Alcohol Use Standard Drinks/Week Comments Yes 0 (1 standard drink = 0.6 oz pure alcohol) occas., 2 per month, before dinner PHQ-2 Answer Date Recorded PHQ-2 Score 0 10/07/2021 Adolescent Education Answer Date Record ed Getting School Help Needed Not on file 02/02 Comments No Sex and Gender Information Value Date Recorded Sex Assigned at Female 01/09/2021 11:55 AM CDT 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 Gender Identity Female 01/09/2021 11:55 AM CDT Sexual Orientation Not on file documented as of this encounter Plan of Treatment Upcoming Encounters Date Type Department Care Team (Late st Contact Info) Description 03/02/2024 10:20 AM CDT Therapy Visit [facility] [address] [facility] [address] [place] [address] Vance Holliday MD 909 [place] [address] Tomi Campa, PT [address] [facility] [address] [place] [address] documented as of this encounter Visit Diagnoses Not on filedocumented in this encounter Care Teams Sketch Artist Relationship Specialty Start Date End Date Janelle Dewitt MD [address] [address] PCP - General Internal Medicine 01/14/21 Kyle Garza MD Family Medicine - Sports Medicine 12/24/14 Phuong Baugh MD [address] [place] [address] Assigned Musculoskeletal Provider 12/13/21 10/23/23 Vance Holliday MD [address] [place] [address] Assigned Musculoskeletal Provider 02/23/24 documented as of this encounter
--- OUTSIDE RECORDS SUMMARY | 2024-02-25 13:00 | XMS_ITS | Encounter Summary ---
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 [address] [place] [address] Vance Holliday MD [address] [place] [address] Tomi Campa T, PT [address] [facility] [address] [place] [address] documented as of this encounter Visit Diagnoses Not on filedocumented in this encounter Care Teams Button Buttonhole Marker Relationship Specialty Start Date End Date Janelle Dewitt MD [address] [address] PCP - General Internal Medicine 01/14/21 Kyle Garza MD Family Medicine - Sports Medicine 12/24/14 documented as of this encounter
--- OUTSIDE RECORDS SUMMARY | 2024-02-25 13:00 | XMS_ITS | Encounter Summary ---
Author Organization [facility] Address [address] [place] [address] Care Team Providers Care Counseling Department Chair Name Role Phone Elizabeth Romeo MD Primary Care Provider Kyle Garza MD Unavailable Elizabeth Romeo MD Unavailable Elizabeth Romeo MD Unavailable Chanelle Segura MD Unavailable [phone] Elizabeth Romeo MD Unavailable Janelle Dewitt MD Primary Care Provider Phuong Baugh MD Unavailable [phone] Chanelle Segura MD Unavailable [phone] Marisol Fernandez PA-C Unavailable [phone] Phuong Baugh MD Unavailable [phone] Vance Holliday MD Unavailable [phone] Encounter Details Date Type Department Care Team (Late st Contact Info) Description 02/16/2011 [facility] Medical Advice [address] [place] [address] Mady Palma RN Social History Tobacco Use Types Packs/Day Years Used Date Smoking Tobacco: Never Alcohol Use Standard Drinks/Week Comments Yes 0 (1 standard drink = 0.6 oz pur e alcohol) occas. 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 [address] [place] [address] Vance Holliday MD [address] [place], [place] [address] Tomi Campa T, PT [address] [facility] [address] [place] [address] documented as of this encounter Visit Diagnoses Not on filedocumented in this encounter Care Teams Counseling Department Chair Relationship Specialty Start Date End Date Elizabeth Romeo MD [address] [place] [address] PCP - General 08/10/02 01/13/21 Elizabeth Romeo MD [address] [place] [address] PCP - Assigned PCP 01/30/18 07/05/18 Janelle Dewitt MD [address] [address] PCP - General Internal Medicine 01/14/21 Kyle Garza MD [address] [address] Family Medicine - Sports Medicine 12/24/14 Elizabeth Romeo MD [address] [address] Assigned PCP 01/30/18 04/08/19 Chanelle Segura MD [address] [place] [address] Assigned PCP 04/09/19 07/22/19 Elizabeth Romeo MD [address] [address] Assigned PCP 07/23/19 04/12/21 Phuong Baugh MD [address] [place] [address] Assigned Musculoskeletal Provider 01/19/21 11/21/21 Chanelle Segura MD [address] [place] [address] Assigned PCP 04/13/21 07/19/21 Marisol Fernandez PA-C [address] [place] [address] Assigned Musculoskeletal Provider 11/22/21 12/12/21 Phuong Baugh MD [address] [place] [address] Assigned Musculoskeletal Provider 12/13/21 10/23/23 Vance Holliday MD [address] [place] [address] Assigned Musculoskeletal Provider 02/23/24 documented as of this encounter
--- OUTSIDE RECORDS SUMMARY | 2024-02-25 13:00 | XMS_ITS | Encounter Summary ---
Author Organization [place] Address [address] [place] [address] Care Team Providers Care Electrician Front Name Role Phone Elizabeth Romeo MD Primary Care Provider Kyle Garza MD Unavailable Elizabeth Romeo MD Unavailable Janelle Dewitt MD Primary Care Provider Phuong Baugh MD Unavailable [phone] Chanelle Segura MD Unavailable Marisol Fernandez PA-C Unavailable [phone] Phuong Baugh MD Unavailable [phone] Vance Holliday MD Unavailable [phone] Encounter Details Date Type Department Care Team (Late st Contact Info) Description 12/06/2020 [facility] Advice 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 Gender Identity Female 01/09/2021 11:55 AM CDT Sexual Orientation Not on file documented as of this encounter Plan of Treatment Upcoming Encounters Date Type Department Care Team (Late st Contact Info) Description 03/02/2024 10:20 AM CDT Therapy Visit [facility] [address] [facility] [address] [place] [address] Vance Holliday MD [address] [place], [place] [address] Tomi Campa, PT [address] [facility] [address] [place] [address] documented as of this encounter Visit Diagnoses Not on filedocumented in this encounter Care Teams Electrician Front Relationship Specialty Start Date End Date Elizabeth Romeo MD [address] [place] [address] PCP - General 08/10/02 01/13/21 Janelle Dewitt MD [facility] & [address] [address] PCP - General Internal Medicine 01/14/21 Kyle Garza MD [address] [place] [address] Family Medicine - Sports Medicine 12/24/14 Elizabeth Romeo MD [address] [place] [address] Assigned PCP 07/23/19 04/12/21 Phuong Baugh MD [address] [place] [address] Assigned Musculoskeletal Provider 01/19/21 11/21/21 Chanelle Segura MD [address] [place] [address] Assigned PCP 04/13/21 07/19/21 Marisol Fernandez PA-C [address] [place] [address] Assigned Musculoskeletal Provider 11/22/21 12/12/21 Phuong Baugh MD [address] [place] [address] Assigned Musculoskeletal Provider 12/13/21 10/23/23 Vance Holliday MD [address] [place] [address]145 Assigned Musculoskeletal Provider 02/23/24 documented as of this encounter
--- OUTSIDE RECORDS SUMMARY | 2024-02-25 13:00 | XMS_ITS | Encounter Summary ---
Author Organization [facility] Address [address] [place] [address] Care Team Providers Care College Or [employer] Registrar Name Role Phone Elizabeth Romeo MD Primary Care Provider [phone] Kyle Garza MD Unavailable [phone] Elizabeth Romeo MD Unavailable Elizabeth Romeo MD Unavailable Chanelle Segura MD Unavailable Elizabeth Romeo MD Unavailable Janelle Dewitt MD Primary Care Provider Phuong Baugh MD Unavailable [phone] Chanelle Segura MD Unavailable Marisol Fernandez PA-C Unavailable [phone] Phuong Baugh MD Unavailable [phone] Vance Holliday MD Unavailable [phone] Encounter Details Date Type Department Care Team (Late st Contact Info) Description 02/02/2014 [facility] Medical Advice Initial Department [facility] Social History Tobacco Use Types Packs/Day Years Used Date Smoking Tobacco: Never Smokeless Tobacco: Never Alcohol Use Standard Drinks/Week Comments Yes 0 (1 standard drink = 0.6 oz pure alcohol) occas., 2 per month, before dinner Comments No Sex and Gender Information Value Date Recorded Sex Assigned at Female 01/09/2021 11:55 AM CDT 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 Gender Identity Female 01/09/2021 11:55 AM CDT Sexual Orientation Not on file documented as of this encounter Plan of Treatment Upcoming Encounters Date Type Department Care Team (Late st Contact Info) Description 03/02/2024 10:20 AM CDT Therapy Visit [facility] [address] [facility] [address] [place] [address] Vance Holliday MD [address] [place], [place] 6435[address] Tomi Campa T, PT 2270 [facility] [address] [place] [address] documented as of this encounter Visit Diagnoses Not on filedocumented in this encounter Care Teams College [employer] Registrar Relationship Specialty Start Date End Date Elizabeth Romeo MD [address] [place] [address] 605787 PCP - General 08/10/02 01/13/21 Elizabeth Romeo MD [address] [place] [address] PCP - Assigned PCP 01/30/18 07/05/18 Janelle Dewitt MD [facility] - [address] [address] PCP - General Internal Medicine 01/14/21 Kyle Garza MD [address] [place] [address] 608017 Family Medicine - Sports Medicine 12/24/14 Elizabeth Romeo MD [address] [address] Assigned PCP 01/30/18 04/08/19 Chanelle Segura MD [address] [place], [place] 186147 Assigned PCP 04/09/19 07/22/19 Elizabeth Romeo MD [address] 358627 Assigned PCP 07/23/19 04/12/21 Phuong Baugh MD [address] [place] [address] 722955 Assigned Musculoskeletal Provider 01/19/21 11/21/21 Chanelle Segura MD [address] [place] [address] Assigned PCP 04/13/21 07/19/21 Marisol Fernandez PA-C [address] [place] [address] 373934 Assigned Musculoskeletal Provider 11/22/21 12/12/21 Phuong Baugh MD [address] [place] [address] 336755 Assigned Musculoskeletal Provider 12/13/21 10/23/23 Vance Holliday MD [address] [place] [address] 912255 Assigned Musculoskeletal Provider 02/23/24 documented as of this encounter
--- OUTSIDE RECORDS SUMMARY | 2024-02-25 13:00 | XMS_ITS | Encounter Summary ---
Author Organization [facility] Address [address] [place] [address] Care Team Providers Care Surgeon Chief Name Role Phone Kyle Garza MD Unavailable Janelle Dewitt MD Primary Care Provider Phuong Baugh MD Unavailable [phone] Marisol Fernandez PA-C Unavailable [phone] Phuong Baugh MD Unavailable [phone] Vance Holliday MD Unavailable [phone] Encounter Details Date Type Department Care Team (Late st Contact Info) Description 07/30/2021 [facility] [place] [address] [address] Phuong Baugh MD [address] [place] [address] Social History Tobacco Use Types Packs/Day [...] AM CDT 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 Gender Identity Female 01/09/2021 11:55 AM CDT Sexual Orientation Not on file documented as of this encounter Plan of Treatment Upcoming Encounters Date Type Department Care Team (Late st Contact Info) Description 03/02/2024 10:20 AM CDT Therapy Visit [facility] [address] [facility] [address] [place] [address] Vance Holliday MD [address] [place], [place] 788835 Tomi Campa, PT 2270 [facility] [address] [place] [address] documented as of this encounter Visit Diagnoses Not on filedocumented in this encounter Care Teams Surgeon Chief Relationship Specialty Start Date End Date Janelle Dewitt MD [facility] [address] [place] [address] PCP - General Internal Medicine 01/14/21 Kyle Garza MD Family Medicine - Sports Medicine 12/24/14 Phuong Baugh MD [address] [place] [address] Assigned Musculoskeletal Provider 01/19/21 11/21/21 Marisol Fernandez PA-C [address] [place] [address] Assigned Musculoskeletal Provider 11/22/21 12/12/21 Phuong Baugh MD [address] [place] [address] Assigned Musculoskeletal Provider 12/13/21 10/23/23 Vance Holliday MD [address] [place] [address] Assigned Musculoskeletal Provider 02/23/24 documented as of this encounter
--- OUTSIDE RECORDS SUMMARY | 2024-02-25 13:00 | XMS_ITS | Encounter Summary ---
Author Organization [facility] Address [address] [place] [address] Care Team Providers Care Chuck Wagon Driver Name Role Phone Kyle Garza MD Unavailable Elizabeth Romeo MD Unavailable Janelle Dewitt MD Primary Care Provider Phuong Baugh MD Unavailable [phone] Chanelle Segura MD Unavailable [phone] Marisol Fernandez PA-C Unavailable Phuong Baugh MD Unavailable [phone] Vance Holliday MD Unavailable [phone] Encounter Details Date Type Department Care Team (Late st Contact Info) Description 04/01/2021 [facility] [address] [place] [address] Phuong Baugh MD [address] [place] [address] Social History Tobacco Use Types Packs/Day [...] AM CDT 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 [address] [place] [address] Vance Holliday MD 9 [place], [place] 302625 Tomi Campa T, PT 2270 [facility] [address] [place] [address] documented as of this encounter Visit Diagnoses Not on filedocumented in this encounter Care Teams Chuck Wagon Driver Relationship Specialty Start Date End Date Janelle Dewitt MD [facility] [address] [place] [address] PCP - General Internal Medicine 01/14/21 Kyle Garza MD Family Medicine - Sports Medicine 12/24/14 Elizabeth Romeo MD [address] [facility] 200 [place] [address] Assigned PCP 07/23/19 04/12/21 Phuong Baugh MD [address] [place] [address] Assigned Musculoskeletal Provider 01/19/21 11/21/21 Chanelle Segura MD [address] [place] [address] Assigned PCP 04/13/21 07/19/21 Marisol Fernandez PA-C [address] [place] [address] Assigned Musculoskeletal Provider 11/22/21 12/12/21 Phuong Baugh MD [address] [place] [address] Assigned Musculoskeletal Provider 12/13/21 10/23/23 Vance Holliday MD [address] [place] [address] 906935 Assigned Musculoskeletal Provider 02/23/24 documented as of this encounter
--- OUTSIDE RECORDS SUMMARY | 2024-02-25 13:00 | XMS_ITS | Encounter Summary ---
Author Organization [facility] Address [address] [place] [address] Care Team Providers Care Hand Packer Name Role Phone Kyle Garza MD Unavailable [phone] Janelle Dewitt MD Primary Care Provider Phuong Baugh MD Unavailable [phone] Chanelle Segura MD Unavailable [phone] Marisol Fernandez PA-C Unavailable [phone] Phuong Baugh MD Unavailable Vance Holliday MD Unavailable [phone] Encounter Details Date Type Department Care Team (Late st Contact Info) Description 05/16/2021 [facility] [address] [place] [address] Phuong Baugh MD [address] [place] [address] Social History Tobacco Use Types Packs/Day [...] AM CDT 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 [address] [place] [address] Vance Holliday MD 9 [place], [place] 344[address] Tomi Campa T, PT 2270 [facility] [address] [place] [address] documented as of this encounter Visit Diagnoses Not on filedocumented in this encounter Care Teams Hand Packer Relationship Specialty Start Date End Date Janelle Dewitt MD [facility] & [address] [address] PCP - General Internal Medicine 01/14/21 Kyle Garza MD Family Medicine - Sports Medicine 12/24/14 Phuong Baugh MD [address] [place] [address] Assigned Musculoskeletal Provider 01/19/21 11/21/21 Chanelle Segura MD [address] [place] [address] Assigned PCP 04/13/21 07/19/21 Marisol Fernandez PA-C [address] [address] Assigned Musculoskeletal Provider 11/22/21 12/12/21 Phuong Baugh MD [address] [place] [address] Assigned Musculoskeletal Provider 12/13/21 10/23/23 Vance Holliday MD 909 [place], [place] 893855 Assigned Musculoskeletal Provider 02/23/24 documented as of this encounter
--- OUTSIDE RECORDS SUMMARY | 2024-02-25 13:00 | XMS_ITS | Encounter Summary ---
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 Gender Identity Female 01/09/2021 11:55 AM CDT [...] Description 03/02/2024 10:20 AM CDT Therapy Visit [facility] [address] [facility] [address] [place] [address] Vance [place] MD 909 [place], [place] 2905[address] Tomi Campa, PT 2270 [facility] [address] [place] [address] documented as of this encounter Visit Diagnoses Not on filedocumented in this encounter Care Teams Peoplesoft Fscm Developer Relationship Specialty Start Date End Date Janelle Dewitt MD [facility] [address] [place] [address] PCP - General Internal Medicine 01/14/21 Kyle Garza MD Family Medicine - Sports Medicine 12/24/14 Elizabeth Romeo MD [address] [facility] 200 [place] [address] Assigned PCP 07/23/19 04/12/21 Phuong Baugh MD 909 [place] [address] Assigned Musculoskeletal Provider 01/19/21 11/21/21 Chanelle Segura MD [address] [place], [place] 326067 Assigned PCP 04/13/21 07/19/21 Marisol Fernandez PA-C [address] [place] [address] 080094 Assigned Musculoskeletal Provider 11/22/21 12/12/21 Phuong Baugh MD [address] [place] [address] 395085 Assigned Musculoskeletal Provider 12/13/21 10/23/23 Vance Holliday MD [address] [place] [address] 019925 Assigned Musculoskeletal Provider 02/23/24 documented as of this encounter
--- OUTSIDE RECORDS SUMMARY | 2024-02-25 13:00 | XMS_ITS | Encounter Summary ---
Author Organization [facility] Address [address] [place] [address] Care Team Providers Care Die Designer Name Role Phone Kyle Garza MD Unavailable Janelle Dewitt MD Primary Care Provider Phuong Baugh MD Unavailable Chanelle Segura MD Unavailable [phone] Marisol Fernandez PA-C Unavailable Phuong Baugh MD Unavailable Vance Holl[place] MD Unavailable Encounter Details Date Type Department Care Team (Late st Contact Info) Description 07/13/2021 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 Gender Identity Female 01/09/2021 11:55 AM CDT Sexual Orientation Not on file documented as of this encounter Plan of Treatment Upcoming Encounters Date Type Department Care Team (Late st Contact Info) Description 03/02/2024 10:20 AM CDT Therapy Visit [facility] [address] [facility] [address] [place] [address] Vance [place] MD 9 [place], [place] 0[address] Tomi Campa T, PT 2270 [facility] [address] [place] [address] documented as of this encounter Visit Diagnoses Not on filedocumented in this encounter Care Teams Die Designer Relationship Specialty Start Date End Date Janelle Dewitt MD [facility] & [address] [address] PCP - General Internal Medicine 01/14/21 Kyle Garza MD Family Medicine - Sports Medicine 12/24/14 Phuong Baugh MD [address] [place] [address] Assigned Musculoskeletal Provider 01/19/21 11/21/21 Chanelle Segura MD [address] [place] [address] Assigned PCP 04/13/21 07/19/21 Marisol Fernandez PA-C [address] [address] Assigned Musculoskeletal Provider 11/22/21 12/12/21 Phuong Baugh MD [address] [place] [address] Assigned Musculoskeletal Provider 12/13/21 10/23/23 Vance [place] MD 909 [place], [place] 757645 Assigned Musculoskeletal Provider 02/23/24 documented as of this encounter
--- OUTSIDE RECORDS SUMMARY | 2024-02-25 13:00 | XMS_ITS | Encounter Summary ---
Author Organization [facility] Address [address] [place] [address] Care Team Providers Care Ripsaw Matcher Name Role Phone Kyle Garza MD Unavailable [phone] Elizabeth Romeo MD Unavailable Janelle Dewitt MD Primary Care Provider Phuong Baugh MD Unavailable [phone] Chanelle Segura MD Unavailable [phone] Marisol Fernandez PA-C Unavailable Phuong Baugh MD Unavailable Vance Holliday MD Unavailable Encounter Details Date Type Department Care Team (Late st Contact Info) Description 02/05/2021 [facility] [address] [place] [address] Phuong Baugh MD [address] [place] [address] Social History Tobacco Use Types Packs/Day [...] CDT 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 Gender Identity Female 01/09/2021 11:55 AM [...] 03/02/2024 10:20 AM CDT Therapy Visit [facility] [address] [facility] [address] [place] [address] Vance [place] MD 9 [place], [place] 9423[address] Tomi Campa T, PT 2270 [facility] [address] [place] [address] documented as of this encounter Visit Diagnoses Not on filedocumented in this encounter Care Teams Ripsaw Matcher Relationship Specialty Start Date End Date Janelle Dewitt MD [facility] [address] [place] [address] PCP - General Internal Medicine 01/14/21 Kyle Garza MD Family Medicine - Sports Medicine 12/24/14 Elizabeth Romeo MD [address] [facility] 200 [place] [address] Assigned PCP 07/23/19 04/12/21 Phuong Baugh MD [address] [place] [address] Assigned Musculoskeletal Provider 01/19/21 11/21/21 Chanelle Segura MD [address] [place] [address] Assigned PCP 04/13/21 07/19/21 Marisol Fernandez PA-C [address] [place] [address] Assigned Musculoskeletal Provider 11/22/21 12/12/21 Phuong Baugh MD [address] [place] [address] Assigned Musculoskeletal Provider 12/13/21 10/23/23 Vance Holl[place] MD [address] [place] [address] 229475 Assigned Musculoskeletal Provider 02/23/24 documented as of this encounter
--- OUTSIDE RECORDS SUMMARY | 2024-02-25 13:00 | XMS_ITS | Encounter Summary ---
Author Organization [facility] Address [address] [place] [address]. 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 Gender Identity Female 01/09/2021 11:55 AM CDT Sexual Orientation Not on file documented as of this encounter Plan of Treatment Upcoming Encounters Date Type Department Care Team (Late st Contact Info) Description 03/02/2024 10:20 AM CDT Therapy Visit [facility] [address] [facility] [address] [place] [address] Vance Holl[place] MD 909 [place] [address] Tomi Campa, PT 2[address] [facility] [address] [place] [address] documented as of this encounter Visit Diagnoses Not on filedocumented in this encounter Care Teams Rn Clinical Appeals Relationship Specialty Start Date End Date Janelle Dewitt MD [facility] & [address] [address] PCP - General Internal Medicine 01/14/21 Kyle Garza MD Family Medicine - Sports Medicine 12/24/14 documented as of this encounter
--- OUTSIDE RECORDS SUMMARY | 2024-02-25 13:00 | XMS_ITS | Encounter Summary ---
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 Gender Identity Female 01/09/2021 11:55 AM CDT Sexual Orientation Not on file documented as of this encounter Plan of Treatment Upcoming Encounters Date Type Department Care Team (Late st Contact Info) Description 03/02/2024 10:20 AM CDT Therapy Visit [facility] [address] [facility] [address] [place] [address] Vance [place] MD [address] [place] [address] Tomi Campa T, PT 2270 [facility] [address] [place] [address] documented as of this encounter Visit Diagnoses Not on filedocumented in this encounter Care Teams Gravel Screener Relationship Specialty Start Date End Date Janelle Dewitt MD [address] [address] PCP - General Internal Medicine 01/14/21 Kyle Garza MD Family Medicine - Sports Medicine 12/24/14 documented as of this encounter
--- OUTSIDE RECORDS SUMMARY | 2024-02-25 13:00 | XMS_ITS | Encounter Summary ---
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 Gender Identity Female 01/09/2021 11:55 AM CDT Sexual Orientation Not on file documented as of this encounter Plan of Treatment Upcoming Encounters Date Type Department Care Team (Late st Contact Info) Description 03/02/2024 10:20 AM CDT Therapy Visit [facility] [address] [facility] [address] [place] [address] Vance Holliday MD [address] [place] [address] Tomi Campa T, PT 2270 [facility] [address] [place] [address] documented as of this encounter Visit Diagnoses Not on filedocumented in this encounter Care Teams Sales Program Coordinator Relationship Specialty Start Date End Date Janelle Dewitt MD [address] [address] PCP - General Internal Medicine 01/14/21 Kyle Garza MD Family Medicine - Sports Medicine 12/24/14 documented as of this encounter
--- OUTSIDE RECORDS SUMMARY | 2024-02-25 13:00 | XMS_ITS | Encounter Summary ---
Author Organization [facility] Address [address] [place] [address] Care Team Providers Care Executive Office Manager Name Role Phone Elizabeth Romeo MD Primary Care Provider Kyle Garza MD Unavailable [phone] Elizabeth Romeo MD Unavailable Elizabeth Romeo MD Unavailable Chanelle Segura MD Unavailable Elizabeth Romeo MD Unavailable Janelle Dewitt MD Primary Care Provider Phuong Baugh MD Unavailable [phone] Chanelle Segura MD Unavailable Marisol Fernandez PA-C Unavailable [phone] Phuong Baugh MD Unavailable [phone] Vance Holliday MD Unavailable [phone] Reason for Visit * Reason Onset Date Comments Refill Request 04/30/2014 methocarbamol 75 0mg Encounter Details Date Type Department Care Team (Late st Contact Info) Description 04/30/2014 [place] [address] [address] [place] [phone] Elizabeth Romeo MD [address] [facility] [address] [place] [address] Refill Request (methocarbamol 750mg) Social History Tobacco Use Types Packs/Day Years Used Date Smoking Tobacco: Never Smokeless Tobacco: Never Alcohol Use Standard Drinks/Week Comments Yes 0 (1 standard drink = 0.6 oz pure alcohol) occas., 2 per month, before dinner Comments No Sex and Gender Information Value Date Recorded Sex Assigned at Female 01/09/2021 11:55 AM CDT 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 Last OV 12/01/13 Last Fill 03/07/14 ITY SUPERVISOR * Telephone Encounter - Martine Coburn - 04/30/2014 11:58 AM CST Last fill 03/07/2014 Last Qty 60 Martine Coburn, Transfer Man [facility] ITY SUPERVISOR documented in this encounter Plan of Treatment Upcoming Encounters Date Type Department Care Team (Late st Contact Info) Description 03/02/2024 10:20 AM CDT Therapy Visit [facility] [place] [address] [facility] [address] [place] [address] Vance Holliday MD [address] [place], [place] [phone] Tomi Campa T, PT [address] [facility] [address] [place] [address] documented as of this encounter Visit Diagnoses Diagnosis Back muscle spasm- Primary Other symptoms referable to back documented in this encounter Care Teams Executive Office Manager Relationship Specialty Start Date End Date Elizabeth Romeo MD [address] [place] [address] PCP - General 08/10/02 01/13/21 Elizabeth Romeo MD [address] [place] [address] PCP - Assigned PCP 01/30/18 07/05/18 Janelle Dewitt MD [address] [address] PCP - General Internal Medicine 01/14/21 Kyle Garza MD [address] [address] Family Medicine - Sports Medicine 12/24/14 Elizabeth Romeo MD [address] [address] Assigned PCP 01/30/18 04/08/19 Chanelle Segura MD [address] [place] [address] Assigned PCP 04/09/19 07/22/19 Elizabeth Romeo MD [address] [place] [address] Assigned PCP 07/23/19 04/12/21 Phuong Baugh MD [address] [place] [address] Assigned Musculoskeletal Provider 01/19/21 11/21/21 Chanelle Segura MD [address] [place] [address] Assigned PCP 04/13/21 07/19/21 Marisol Fernandez PA-C [address] [place] [address] Assigned Musculoskeletal Provider 11/22/21 12/12/21 Phuong Baugh MD [address] [place] [address] Assigned Musculoskeletal Provider 12/13/21 10/23/23 Vance Holliday MD [address] [place] [address] Assigned Musculoskeletal Provider 02/23/24 documented as of this encounter
--- OUTSIDE RECORDS SUMMARY | 2024-02-25 13:00 | XMS_ITS | Encounter Summary ---
Author Organization [facility] Address [address] [place] [address] Care Team Providers Care Bobbin Winder Name Role Phone Kyle Garza MD Unavailable [phone] Janelle Dewitt MD Primary Care Provider Reason for Referral * Rehab Therapy Physical Therapy (Routine: Next available opening) - Pending Review Specialty Diagnoses / Procedures Referred By Controsi t Referred To Contact Diagnoses Left knee pain Vance Holliday MD [address] [place] [address] Phone: tel: fax: Referral ID Status Reason Start Date Expiration Date V isits Requested Visits Authorized [id number] Pending Review 01/28/2024 01/27/2025 1 1 Question Answer Course of Action: Evaluation and Treatment Specialty Services: Per Associated Diagnosis Scheduling Instructions: [facility] will call you to coordinate your care as prescribed by your provider. If you don't hear from a sales representative [employer] within 2 business days, please call . Comments Please be aware that coverage of these services is subject to the terms and limitations of your health insurance plan. Call member services at your health plan with any benefit or coverage questions. [facility]ella [facility] to [facility] your care as prescribed by your provider. If you don't hear from a sales representative [employer] within 2 business days, please call . * Diagnostic Imaging XR (Routine) - Pending Review Specialty Diagnoses / Procedures Referred By Raheem t Referred To Contact Radiology. Diagnoses Left knee pain Procedures XR Knee Standing AP [place] Bilat Lat Left Vance Holliday MD [address] [place] [address] Phone: tel: fax: Referral ID Status Reason Start Date Expiration Date V isits Requested Visits Authorized [id number] Pending Review 01/28/2024 01/27/2025 1 1 Reason for Visit * Reason Comments Pain Encounter Details Date Type Department Care Team (Latest Contact Info) Description 01/28/2024 2:00 PM CDT Office Visit [facility] [address] [place], [place] [phone] Vance Holliday MD [address] [place] [address] Chronic pain of left knee (Primary Dx); S/P left unicompartmental knee replacement Social History Tobacco Use Types Packs/Day Years [...] CDT 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 Left knee pain Call my office with any questions or concerns, . documented in this encounter Progress Notes * Jose Luis Stanton ATC - 01/28/2024 2:00 PM CDT Images from the original note were not included. [facility] Consultation by Vance Holliday M.D. Ángela Palma Age: [age] year old Date of : 1955 Requesting physician: No ref. provider found Janelle Dewitt Background history: DX: Gastroesophageal reflux disease TREATMENTS: 01/2010, [facility] TERRYA, Dr. Marques Wheeler, [facility] 03/2010, [facility] CORDOVA, Dr. Marques Wheeler, [facility] 07/2013, L knee UKA arthroscopy for loose bodies, Dr. Baugh, [facility] 10/09/21 Right UKA to TKA conversion, Dr. Baugh, [facility] History of Present Illness: 68 year old female chief complaint chronic left knee pain swelling, discomfort This patient presents today to establish care with an arthroplasty surgeon. She states that her left knee has been swollen over the past few weeks. No traumatic event. No instability. Does not reportsignificant night pain. She does endorse the presence of initiation stiffness and soreness. She also reports some intermittent discomfort. Does really report pain on today's visit. The discomfort is nonspecific in terms of location of note, she is status post left medial unicondylar knee arthroplasty performed in 2009. She is also most recently status post a right total knee arthroplasty conversion from a unicondylar knee arthroplasty in 2021. She is pretty satisfied with both knees. Hx of chronic tendonitis in both knees, increase pain and swelling at night. She would like to know if it is time for total on her left or not. She is a previous patient of Dr. Baugh. She denies any hip pain she denies any radicular pain. Prior Treatment(s) for current problem: Has not tried physical therapy Has tried pain medication with mild relief of symptoms Has not tried bracing Social: Occupation: retired Living situation: lives with significant other Hobbies / Sports: Enjoys being retired Smoking: No Alcohol: No Illicit drug use: No Physical Exam: EXAMINATION pertinent findings: PSYCH: Pleasant, healthy-appearing, alert, oriented x3, cooperative. Normal mood and affect. VITAL SIGNS: Last menstrual period 11/10/2005, not currently . Reviewed nursing intakenotes. There is no height or weight on file to calculate BMI. RESP: non labored breathing ABD: benign, soft, non-tender, no acute peritoneal findings SKIN: grossly normal LYMPHATIC: grossly normal, no adenopathy, no extremity edema NEURO: grossly normal , no motor deficits VASCULAR: satisfactory perfusion of all extremities MUSCULOSKELETAL: Alignment: neutral Gait: non-antalgic Hips: L hip: ROM FF90??, Extension 0??, IRF 15??, ERF 45??, ABD 15??, ADD 10??, No pain elicited on ROM testing R hip: ROM FF90??, Extension 0??, IRF 15??, ERF 45??, ABD 15??, ADD 10??, No pain elicited on ROM testing Knees: L knee: ROM 120-0-0??. Straight leg raise +. No redness, warmth or skin changes present. Well healed incisional scar. Effusion mild . Ligamentously stable in both ML and AP direction. Normal PF tracking without crepitus. Apprehension -. No tenderness to palpation over the joint line. R knee: ROM 115-0-0??. Straight leg raise +. No redness, warmth or skin changes present. Well healed incisional scar. Effusion No. Ligamentously stable in both ML and AP direction. Normal PF trackingwithout crepitus. Apprehension -. No tenderness to palpation over the joint line. BLE: Thigh and leg compartments soft and compressible +Quad/TA/GSC/FHL/EHL SILT DP/SP/Cesilia/Saph/Tib nerve distributions Palpable dorsalis pedis pulse Data: All laboratory data reviewed All imaging studies reviewed by me personally. XR alignment films 04/07/2023: My interpretation: Slight varus alignment of right lower extremity. Neutral alignment of left lowerextremity. XR bilateral knee 01/28/2024: My interpretation: Status post right total knee arthroplasty. Adequate sizing, orientation and fixation of components. No signs of complications. Status post left unicondylar knee arthroplasty. Adequate sizing, orientation and fixation of components. No signs of complications. Assessment and Plan: Assessment: 68-year-old female with chronic left knee pain status post left unicondylar knee arthroplasty, withuncomplicated right total knee arthroplasty. Her left knee pain is likely secondary to an exacerbation and progression of underlying mild to moderate arthritis within her lateral and patellofemoral compartments. Low clinical suspicion for fracture, loosening, infection. Has no exhausted non-operative management of her left knee pain. Plan: We had a lengthy discussion with the patient during today's appointment regarding the findings above. The patient's symptoms likely represent having exacerbation with progression of her underlying arthritis of the lateral patellofemoral compartments. At this time, there is low clinical suspicion for more serious complications contributing to her pain. Therefore we do not feel any further workup is needed. Additionally, she is not exhausted nonoperative management of her continued left knee pain. We do not believe that she is a candidate for conversion to total knee arthroplasty at this time. Therefore we gave her a referral for physical therapy for quad strengthening and educated her on taking anti-inflammatories to help treat some of her pain. She may continue to follow-up with us on a as needed basis. Thank you for your referral. Rohan Gabriel MD Fellow Adult Reconstruction Attending MD (Dr. Vance Holliday) Attestation : This patient was seen and evaluated by me including a history, exam, and interpretation of all imaging and/or lab data. I formulated the treatment plan along with either a physician's social service assistant (HELEN) or training physician (resident/fellow), who also saw the patient. That individual or a scribe has documented the visit in the attached note which Iapprove. Vance Holliday MD, PhD Monkey Trainer Adult Reconstruction [facility] Department of Orthopaedic Surgery This note was created using dictation software and may contain errors. Please contact the creator for any clarifications that are needed. DATA for DOCUMENTATION: Past Medical History: Patient Active Problem List Diagnosis Chronic rhinitis CARDIOVASCULAR SCREENING; LDL GOAL LESS THAN 130 Primary localized osteoarthrosis, lower leg Status post total right knee replacement Past Medical History: Diagnosis Date Arthritis Benign neoplasm of breast 08/01/2002 Fibroadenoma Displacement of intervertebral disc, site unspecified, without myelopathy 05/03/2001 GERD (gastroesophageal reflux disease) not currently Other chronic pain knees bilateral Perianal abscess 05/03/2013 Sleep stage dysfunction Also see scanned health assessment forms. Past Surgical History: Past Surgical History: Procedure Laterality Date ARTHROPLASTY REVISION KNEE Right 10/09/2021 Procedure: Right Total Knee Arthroplasty, explant medial uni prothesis; Surgeon: Phuong Baugh MD; Location: OR ARTHROSCOPY KNEE WITH LATERAL MENISCECTOMY 07/28/2013 Procedure: ARTHROSCOPY KNEE WITH LATERAL MENISCECTOMY; Left Knee Arthroscopy, Removal of Loose Body, Partial Lateral Meniscectomy; Surgeon: Phuong Baugh MD; Location: OR ESOPHAGOSCOPY, GASTROSCOPY, DUODENOSCOPY (EGD), COMBINED 03/31/2013 Procedure: COMBINED ESOPHAGOSCOPY, GASTROSCOPY, DUODENOSCOPY (EGD), BIOPSY SINGLE OR MULTIPLE; ESOPHAGOSCOPY, GASTROSCOPY, DUODENOSCOPY (EGD)cold forceps biosies; Surgeon: Avelino Pickens MD; Location: GI FISTULOTOMY RECTUM 12/15/2013 Procedure: FISTULOTOMY RECTUM; Surgeon: Jana Salcido MD; Location: OR ORTHOPEDIC SURGERY [facility] NONSPECIFIC PROCEDURE multiple breast biopsies-fibroadenoma [facility] NONSPECIFIC PROCEDURE 02/04/2010 partial left knee replacement [facility] NONSPECIFIC PROCEDURE 03/17/2010 partial right knee replacement Social History: Social History Socioeconomic History Marital status: Single Spouse name: Not on file Number of children: 0 Years of education: Not on file Highest education level: Not on file Occupational History Not on file Tobacco Use Smoking status: Never Smokeless tobacco: Never Substance and Sexual Activity Alcohol use: Yes Comment: occas., 2 per month, before dinner Drug use: No Sexual activity: Never Partners: Male Other Topics Concern Service Not Asked Blood Transfusions Not Asked Caffeine Concern Not Asked Occupational Exposure Not Asked Hobby Hazards Not Asked Sleep Concern Not Asked Stress Concern Not Asked Weight Concern Not Asked Special Diet Not Asked Back Care Not Asked Exercise Yes Bike Helmet Not Asked Seat Belt Yes Self-Exams Yes Parent/sibling w/ CABG, [place] or angioplasty before 65F 55M? Not Asked Social History Narrative Not on file Social Determinants of Health Financial Resource Strain: Not on file Food Insecurity: Not on file Transportation Needs: Not on file Physical Activity: Not on file Stress: Not on file Social Connections: Not on file Interpersonal Safety: Not on file Housing Stability: Not on file Family History: Family History Problem Relation Age of Onset C.A.D. Father 50's Hypertension Mother Respiratory Mother Asthma Blood Disease Mother Excessive bleeding in past Heart Disease Mother CHF, 86 yo Osteoporosis Mother vertebral fracture Arthritis Sister Hypertension Brother Blood Disease Sister Type 1 Von Willebrand's Medications: Current Outpatient Medications Medication Sig Dispense Refill acetaminophen (TYLENOL) 325 MG tablet Take 2 tablets (650 mg) by mouth every 4 hours as needed for other 60 tablet 0 amoxicillin (AMOXIL) 500 MG capsule Take 4 tablets (2,000mg) one hour before dental appointment or non-sterile procedures 4 capsule 0 aspirin (ASA) 81 MG EC tablet Take 2 tablets (162 mg) by mouth daily 60 tablet 0 calcium carbonate (OS-CASPER 500 MG TAKOTNA. CA) 500 MG tablet Take 500 mg by mouth 2 times daily glucosamine-chondroitin 500-400 MG CAPS per capsule Take 1 capsule by mouth daily MAGNESIUM OXIDE PO Take 250 mg by mouth daily melatonin 5 MG tablet Take 5 mg by mouth At Bedtime Multiple Vitamins-Minerals (VITAMINS & MINERALS CAPS OR) Take 1 capsule by mouth daily psyllium 400 MG capsule Take 1 capsule by mouth 2 times daily No current facility-administered medications for this visit. Review of Systems: A comprehensive 10 point review of systems (constitutional, ENT, cardiac, peripheral vascular, lymphatic, respiratory, GI, , Musculoskeletal, skin, Neurological) was performed and found to be negative except as described in this note. See intake form completed by patient documented in this encounter Plan of Treatment Upcoming Encounters Date Type Department Care Team (Late st Contact Info) Description 03/02/2024 10:20 AM CDT Therapy Visit [facility] [address] [facility] [address] [place] [phone] Vance Holliday MD [address] [place] [address] Tomi Campa, PT [address] [facility] [address] [place] [address] Scheduled Referrals Name Type Priority Associated Diagnoses Orde r Schedule Physical Therapy Coil Former Referral Referral Routine: Next available opening Chronic pain of left knee Expected: 01/28/2024 (Approximate), Expires: 01/27/2025 documented as of this encounter Results * XR Knee Standing AP [place] Bilat Lat Left (01/28/2024 2:32 PM CDT) [...] knee replacement. ROM PETERSON MD SYSTEM ID: ??[id number] Narrative 01/28/2024 3:51 PM CDT XR KNEE [...] knee replacement. ROM PETERSON MD SYSTEM ID: [id number] Vance Holliday MD IMG DIAGNOSTIC IMAGING ORDER [place] Final Result documented in this encounter Visit Diagnoses Diagnosis Chronic pain of left knee- Primary Pain in joint, lower leg S/P left unicompartmental knee replacement Knee joint replacement by other means Left knee pain Pain in joint, lower leg documented in this encounter Care Teams Bobbin Winder Relationship Specialty Start Date End Date Janelle Dewitt MD [address] [address] PCP - General Internal Medicine 01/14/21 Kyle Garza MD Family Medicine - Sports Medicine 12/24/14 documented as of this encounter
--- OUTSIDE RECORDS SUMMARY | 2024-02-25 13:00 | XMS_ITS | Encounter Summary ---
Author Organization [facility] Address [address] [place] [address] Care Team Providers Care Manager Dish Name Role Phone Kyle Garza MD Unavailable [phone] Janelle Dewitt MD Primary Care Provider [phone] Reason for Visit * Rehab Therapy Physical Therapy (Routine: Next available opening) - Pending Review Specialty Diagnoses / Procedures Referred By Raheem stephenson Referred To Contact Diagnoses Left knee pain Vance Holliday MD [address] [place] [address] Phone: tel: fax: Referral ID Status Reason Start Date Expiration Date V isits Requested Visits Authorized [id number] Pending Review 01/28/2024 01/27/2025 1 1 Encounter Details Date Type Department Care Team (Latest Contact Info) Description 02/18/2024 10:20 AM CDT Therapy Visit [facility] [address] [facility] [address] [place] [phone] Vance Holliday MD [address] [place] [id number] Tomi Campa T, PT [address] [facility] [address] [place] [address] Chronic pain of left knee Social History Tobacco Use Types Packs/Day Years [...] AM CDT 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 Gender Identity Female 01/09/2021 11:55 AM CDT Sexual Orientation Not on file documented as of this encounter Progress Notes * Tomi Campa T, PT - 02/18/2024 10:20 AM CDT PHYSICAL THERAPY EVALUATION Type of Visit: Evaluation Fall Risk Screen: Fall screen completed by: PT Have you fallen 2 or more times in the past year?: No Have you fallen and had an injury in the past year?: No Is patient a fall risk?: No Subjective Presenting condition or subjective complaint: new swelling left knee Date of onset: 10/19/23 Relevant medical history: Arthritis; Osteoarthritis Dates & types of surgery: Prior diagnostic imaging/testing results: X-ray Prior therapy history for the same diagnosis, illness or injury: No [facility] PT FINDINGS: 1) Pain with single leg squat - eccentric phase 2) Pain and poor neuro control during lateral step downs 3) Significant tightness in quad musculature Physical Therapy Initial Evaluation: Subjective History Injury/Condition Details: Presenting Complaint Patient presents to therapy with L knee pain. Partial L knee replacement in 2009, in 2011 was having issues with catching of the knee. In 2013 she had arthroscopic knee surgery to remove loose bodies - that surgery has helped to improve function. Patient is currently very active but has started to experience pain and minor swelling around the L knee. Onset Timing/Date 3-4 months Mechanism Gradual onset Symptom Behavior Details Primary Symptoms Sporadic symptoms; Activity/position dependent Worst Pain 3/10 Symptom Provocators Gardening, prolonged squat Best Pain 0/10 Symptom Relievers Ice, elevate, exercise modification Time of day dependent? Yes Recent symptom change? symptoms improving Prior Testing/Intervention for current condition: Prior Tests x-ray Prior Treatment Surgery(ies): Partial knee replacement Lifestyle & General Medical History: Employment Retired Usual physical activities (within past year) No Orthopaedic history No Notable medical history See Epic Chart Patient Reported Health excellent Living Environment Social support: With a significant other or spouse Type of home: [facility] Stairs to enter the home: Yes 2 Is there a railing: Yes Ramp: No Stairs inside the home: Yes 20 Is there a railing: Yes Help at home: None Equipment owned: Straight Cane; Walker; Commode Employment: No Hobbies/Interests: Retired Patient goals for therapy: walk, stretch as before Objective KNEE: Standing Posture: Normal Gait: Normal Functional: - Squat/ SL Squat: Slight pain in L knee on descent - Lateral Step Down: Slight pain in L knee on 2 & 4 inch step AROM: (* indicates patient's pain) PROM:(over pressure) L R L R Hyperextension Extension 0 0 No pain No pain Flexion 135 133 No pain No pain Strength: L R HIP Flex 4 4 Ext 5- 4+ ABd 4 4 KNEE Flex 5 5 Ext 5 5 Hip PROM: Hip extension limited due to quad tightness Palpation: Slight pain on the lateral aspect of knee both superior and inferior to patalla Patellar tracking: Did not evaluate - will look at next session Assessment & Plan CLINICAL IMPRESSIONS Medical Diagnosis: Chronic pain of left knee (M25.562, G89.29) Treatment Diagnosis: L knee pain Impression/Assessment: Patient is a 68 year old female with L knee pain complaints. The following significant findings have been identified: Pain, Decreased strength, Impaired muscle performance, andDecreased activity tolerance. 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 Clinical Decision Making (Complexity): Clinical Presentation: Stable/Uncomplicated Clinical Presentation Rationale: based on medical and personal factors listed in PT evaluation Clinical Decision Making (Complexity): Low complexity PLAN OF CARE Treatment Interventions: Interventions: Manual Therapy, Neuromuscular Re-education, Therapeutic Activity, Therapeutic Exercise, Self-Care/Home Management Alf Goals PT Goal 1 Goal Identifier: Squatting Goal Description: Patient will be able squat 90 or lower with <2/10 pain to improve participation with ADLs Rationale: to maximize safety and independence with performance of ADLs and functional tasks Target Date: 03/31/24 PT Goal 2 Goal Identifier: Stairs Goal Description: Patient will be able to ascend and descend 20 stairs without L knee pain Rationale: to maximize safety and independence within the community;to maximize safety and independence within the home Target Date: 05/12/24 Frequency of Treatment: 1x / week Duration of Treatment: 12 weeks Recommended Referrals to Other Professionals: Patient appropriate for physical therapy, no referralrequired at this time. Education Assessment: Learner/Method: Patient;No Barriers to Learning Education Comments: Discussed anatomy of the knee, exercise progression, and goals of PT Risks and benefits of evaluation/treatment have been explained. Patient/Family/caregiver agrees with Plan of Care. Evaluation Time: PT Hussein Chappell Minutes ([id number]): 20 Signing Clinician: Tomi Campa PT [facility] OUTPATIENT PHYSICAL THERAPY PLAN OF TREATMENT FOR OUTPATIENT REHABILITATION Patient's Last Name, First Name, RejiJose FranciscoCathyJose Francisco Ángela Palma Date of : 1955 Provider's Name [facility] Onset Date: 10/19/23 Start of Care Date: 02/18/24 Medical Diagnosis: Chronic pain of left knee (M25.562, G89.29) PT Treatment Diagnosis: L knee pain Plan of Treatment Frequency/Duration: 1x / week/ 12 weeks Certification date from 02/18/24 to 05/12/24 See note for plan of treatment details and functional goals Tmoi Campa, PT I CERTIFY THE NEED FOR THESE SERVICES FURNISHED UNDER THIS PLAN OF TREATMENT AND WHILE UNDER MY CARE (Physician attestation of this document indicates review and certification of the therapy plan). Referring Provider: Vance Holliday Initial Assessment See Epic Evaluation- Start of Care Date: 02/18/24 Cosigned by Vance Holliday MD at 02/18/2024 12:56 PM CDT Associated attestation - Vance Holliday MD - 02/18/2024 12:56 PM CDT Physician Attestation I agree with the information in this note. Vance Holliday MD documented in this encounter Plan of Treatment Upcoming Encounters Date Type Department Care Team (Late st Contact Info) Description 03/02/2024 10:20 AM CDT Therapy Visit [facility] [address] [facility] [address] [place] [address] Vance Holliday MD [address] [place], [place] [phone] Tomi Campa, PT [address] [facility] [address] [place] [address] documented as of this encounter Visit Diagnoses Diagnosis Chronic pain of left knee Pain in joint, lower leg documented in this encounter Care Teams Manager Dish Relationship Specialty Start Date End Date Janelle Dewitt MD [facility] [address] [place] [address] PCP - General Internal Medicine 01/14/21 Kyle aGrza MD Family Medicine - Sports Medicine 12/24/14 documented as of this encounter
--- OUTSIDE RECORDS SUMMARY | 2024-02-25 13:00 | XMS_ITS | Encounter Summary ---
Author Organization [facility] Address [address] [place] [address] Care Team Providers Care Lifter Name Role Phone Kyle Garza MD Unavailable [phone] Janelle Dewitt MD Primary Care Provider Phuong Baugh MD Unavailable Chanelle Segura MD Unavailable [phone] Marisol Fernandez PA-C Unavailable Phuong Baugh MD Unavailable Vance Holliday MD Unavailable [phone] Encounter Details Date Type Department Care Team (Late st Contact Info) Description 06/18/2021 [facility] Medical Advice 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 Gender Identity Female 01/09/2021 11:55 AM CDT Sexual Orientation Not on file documented as of this encounter Plan of Treatment Upcoming Encounters Date Type Department Care Team (Late st Contact Info) Description 03/02/2024 10:20 AM CDT Therapy Visit [facility] [address] [facility] [address] [place] [address] Vance Holliday MD [address] [place], [place] [phone] Tomi Campa T, PT [address] [facility] [address] [place] [address] documented as of this encounter Visit Diagnoses Not on filedocumented in this encounter Care Teams Lifter Relationship Specialty Start Date End Date Janelle Dewitt MD [facility] & [address] [address] PCP - General Internal Medicine 01/14/21 Kyle Garza MD Family Medicine - Sports Medicine 12/24/14 Phuong Baugh MD [address] [place] [address] Assigned Musculoskeletal Provider 01/19/21 11/21/21 Chanelle Segura MD [address] [place] [address] Assigned PCP 04/13/21 07/19/21 Marisol Fernandez PA-C [address] [address] Assigned Musculoskeletal Provider 11/22/21 12/12/21 Phuong Baugh MD [address] [place] [address] Assigned Musculoskeletal Provider 12/13/21 10/23/23 Vance Holliday MD [address] [place], [place] [address] Assigned Musculoskeletal Provider 02/23/24 documented as of this encounter
--- OUTSIDE RECORDS SUMMARY | 2024-02-25 13:00 | XMS_ITS | Encounter Summary ---
Author Organization [facility] Address [address] [place] [address] Care Team Providers Care Department Store Salesperson Name Role Phone Kyle Garza MD Unavailable [phone] Janelle Dewitt MD Primary Care Provider Reason for Visit * Diagnostic Imaging XR (Routine) - Pending Review Specialty Diagnoses / Procedures Referred By Contac t Referred To Contact Radiology. Diagnoses Left knee pain Procedures XR Knee Standing AP [place] Bilat Lat Left Vance Holliday MD [address] [place] [address] Phone: tel: fax: Referral ID Status Reason Start Date Expiration Date V isits Requested Visits Authorized [id number] Pending Review 01/28/2024 01/27/2025 1 1 Encounter Details Date Type Department Care Team (Late st Contact Info) Description 01/28/2024 2:20 PM CDT Ancillary Procedure [facility] [address] [place], [place] [address] Vance Holliday MD [address] [place] [address] Left knee pain Social History Tobacco Use Types Packs/Day Years [...] AM CDT 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 Gender Identity Female 01/09/2021 11:55 AM CDT Sexual Orientation Not on file documented as of this encounter Plan of Treatment Upcoming Encounters Date Type Department Care Team (Late st Contact Info) Description 03/02/2024 10:20 AM CDT Therapy Visit [facility] [address] [facility] [address] [place] [address] Vance Holliday MD [address] [place] [address] Tomi Campa, PT [address] [facility] [address] [place] [address] documented as of this encounter Procedures Procedure Name Priority Date/Time Associated Diagnosis Comments XR KNEE STANDING AP [place] BILAT LAT LEFT Routine 01/28/2024 2:32 PM CDT Left knee pain documented in this encounter Results * XR Knee Standing AP [place] Bilat Lat Left (01/28/2024 2:32 PM CDT) [...] knee replacement. ROM PETERSON MD SYSTEM ID: [id number] Narrative 01/28/2024 3:51 PM CDT XR KNEE [...] knee replacement. ROM PETERSON MD SYSTEM ID: [id number] Vance Holliday MD IMG DIAGNOSTIC IMAGING ORDER [place] Final Result documented in this encounter Visit Diagnoses Diagnosis Left knee pain Pain in joint, lower leg documented in this encounter Care Teams Department Store Salesperson Relationship Specialty Start Date End Date Janelle Dewitt MD [facility] & [address] [address] PCP - General Internal Medicine 01/14/21 Kyle Garza MD Family Medicine - Sports Medicine 12/24/14 documented as of this encounter
== END 2024-02-25 12:57 | disposition home or self-care (01) ==
LOC: MAMMO 12:57
PROVIDERS: PCP Internal Medicine; Visit Provider Internal Medicine
DX: Z12.31 Encounter for screening mammogram for malignant neoplasm of breast (principal); R92.333 Mammographic heterogeneous density, bilateral breasts
CPT/HCPCS: 77063; 77067

== ENCOUNTER 2025-02-26 13:29 | Outpatient (CLI) | payer MEDICARE, BC, SELFPAY ==
--- NOTE | 2025-02-26 13:40 | CRLHL7_ITS ---
For Patients: As a result of the Century Cures Act, medical imaging exams and procedure reports are released immediately into your electronic medical record. You may view this report before your referring provider. If you have questions, please contact your health care provider. INDICATION: BILATERAL SCREENING MAMMOGRAM, ASYMPTOMATIC 69 Y/O FEMALE COMPARISON: 02/25/2024, 02/23/2023, 02/17/2022 TECHNIQUE: Digital mammogram in CC and MLO projections including computer-aided detection (CAD) and tomosynthesis. BREAST COMPOSITION: The breasts are heterogeneously dense, which may obscure small masses. FINDINGS: No suspicious findings. ASSESSMENT: BI-RADS 2 Benign RECOMMENDATION: Annual screening mammogram. A lay language report of this examination will be provided to the patient. Dictated by: @ 02/27/2025 09:08:33 (Electronically Signed)
== END 2025-02-26 13:30 | disposition home or self-care (01) ==
LOC: MAMMO 13:30
PROVIDERS: PCP Internal Medicine; Visit Provider Internal Medicine
DX: Z12.31 Encounter for screening mammogram for malignant neoplasm of breast (principal); R92.333 Mammographic heterogeneous density, bilateral breasts
CPT/HCPCS: 77063; 77067

== ENCOUNTER 2025-04-16 07:43 | Outpatient (CLI) | payer MEDICARE, BC, SELFPAY | END 2025-04-16 07:44 | disposition home or self-care (01) | LOC: NFLDREF 07:43 | PROVIDERS: PCP Internal Medicine; Visit Provider Internal Medicine | DX: M85.80 Other specified disorders of bone density and structure, unspecified site (principal) | CPT/HCPCS: 82306 ==